=== PATIENT | male | born 1995 | race Caucasian/White ===

== ENCOUNTER 2020-01-19 07:20 | Emergency (ER) | payer OTHER, SELFPAY ==
--- NOTE | ~2020-01-19 | CT_ITS ---
EXAMINATION: CT wrist LT wo con DATE: 01/19/2020 08:09 INDICATION: Scaphoid fracture TECHNIQUE: High resolution computed tomography (CT) of the left wrist was performed without intraveno us contrast. Additional sagittal and coronal reconstructions were performed. Automated exposure contr ol and iterative reconstruction technique were employed. The dose-length product was 249.64 mGy-cm. COMPARISON: Left wrist radiographs dated 01/19/2020 FINDINGS: Nondisplaced fracture across the left scaphoid waist is confirmed. Alignment remains normal. No other fractures identified. Joint spaces are normal. Soft tissue swelling about the carpus with likely alvina ctive midcarpal joint effusion. Tendons appear unremarkable. IMPRESSION: 1. Nondisplaced scaphoid waist fracture which remains in anatomic alignment. Reviewed, dictated and finalized at location A.
--- NOTE | ~2020-01-19 | XR_ITS ---
EXAMINATION: XR wrist LT min 3V DATE: 01/19/2020 07:33 INDICATION: Left wrist pain post fall TECHNIQUE: Posteroanterior, ulnar deviation, oblique, and lateral views of the left wrist were obtain ed. COMPARISON: none FINDINGS: Subtle linear lucency likely representing a nondisplaced transverse fracture across the scaphoid wais t. Alignment remains normal. No other fractures identified. Joint spaces are normal. IMPRESSION: 1. Likely nondisplaced scaphoid waist fracture. Given that this is apparent on only one projection, c ould consider CT for more definitive determination. Reviewed, dictated and finalized at location A. IMPRESSION: 1. Likely nondisplaced scaphoid waist fracture. Given that this is apparent on only one projection, could consider CT for more definitive determination.
[2020-01-19 07:13] VITALS: BP 126/80; PULSE 83; RESP 18; TEMP 36.8; O2SAT 100
--- NOTE | 2020-01-19 07:25 | ED.UPPEXIN ---
HPI - Extremity Injury (Upper) General Chief Complaint: Extremity Injury, Upper Stated Complaint: Wrist injury History of Present Illness HPI narrative: Patient is a 24-year-old male who presents ER with left wrist pain. Patient was on a skateboard yesterday when he fell off and landed on his outstretched hand. He did strike his hand on the ground and is unsure if he lost consciousness. He does remember hitting the ground. No new numbness or tingling in the wrist. Pain is worse with any type of movement. No additional injury to the left arm. Related Data Allergies Allergy/AdvReac Type Severity Reaction Status Date / Time clavulanic acid Allergy Mild Anaphylaxis Verified 01/19/20 07:22 Penicillins Allergy Mild Anaphylaxis Verified 01/19/20 07:22 amoxicillin Allergy Unknown Hives / Verified 01/19/20 07:22 Red Face BETALACTAMASEIN Allergy Mild Unknown Uncoded 01/19/20 07:22 Review of Systems Constitutional: Constitutional: Denies chills, Denies fatigue and Denies fever(s) ENT: Denies nasal congestion and Denies sore throat Respiratory: Respiratory: Denies cough and Denies dyspnea Musculoskeletal: Musculoskeletal: Reports arthralgias and Denies muscle cramps Neurologic: Denies numbness and Denies weakness PMFSH Past Medical History Medical History (Updated 01/19/20 @ 08:52 by Jet Root MD) Anxiety Paranoid schizophrenia Surgical History Surgical History (Updated 01/19/20 @ 08:41 by Jet Root MD) History of ankle surgery Social History Social History (Updated 01/19/20 @ 09:25 by Jet Root MD) Tobacco type: e-cigarettes Exam Narrative: Exam Narrative: GENERAL: Well-appearing, well-nourished, and in no acute distress. HEAD: Normocephalic, atraumatic. EXTREMITIES: Focused exam of the right wrist reveals tenderness to entirety of the wrist with slight swelling. Decreased range of motion due to pain. Normal range of motion of the elbow and fingers. Sharp and soft touch intact. Normal pulses. SKIN: Warm, dry, no rash. NEURO: No focal deficits. Alert and oriented x3. PSYCH: Normal mood and affect. Course Vital Signs Vital signs: Vital Signs Temperature 98.2 F 01/19/20 07:13 Pulse Rate 83 01/19/20 07:13 Respiratory Rate 18 01/19/20 07:13 Blood Pressure 126/80 01/19/20 07:13 Pulse Oximetry 100 01/19/20 07:13 Temperature 98.2 F 01/19/20 07:13 Pulse Rate 83 01/19/20 07:13 Respiratory Rate 18 01/19/20 07:13 Blood Pressure 126/80 01/19/20 07:13 Pulse Oximetry 100 01/19/20 07:13 Procedures Orthopedic Splinting/Casting Injury #1: Splinting/Casting Date: 01/19/20 Splinting/Casting Time: 08:50 Side: left Upper Extremity Injury Location: wrist Upper Extremity Immobilizer: thumb spica Splint: customized in ED OCL: thumb spica Pre-Procedure Neuro Vascular Exam: normal Post-Procedure Neuro Vascular Exam: normal MDM - Extremity Injury (Upper) Imaging Data Radiologist's impression: ITS Impressions Wrist X-Ray 01/19/20 07:36 IMPRESSION: 1. Likely nondisplaced scaphoid waist fracture. Given that this is apparent on only one projection, could consider CT for more definitive determination. Wrist CT 01/19/20 08:39 IMPRESSION: 1. Nondisplaced scaphoid waist fracture which remains in anatomic alignment. Discharge Plan Discharge Clinical Impression: Scaphoid fracture of wrist Qualifiers: Encounter type: initial encounter Scaphoid bone location: unspecified portion of scaphoid Fracture type: closed Fracture alignment: nondisplaced Laterality: left Qualified Code(s): S62.002A - Unspecified fracture of navicular [scaphoid] bone of left wrist, initial encounter for closed fracture Patient Disposition: Home, Self-Care Condition: Stable Instructions: Scaphoid Fracture (ED) Additional Instructions: Return to the ER if you have new injury, you have chest serge
[2020-01-19 09:40] VITALS: BP 140/79; PULSE 72; RESP 16; O2SAT 99
== END 2020-01-19 09:42 | disposition home or self-care (01) ==
PROVIDERS: Emergency Provider Emergency Medicine
DX: S62.025A Nondisplaced fracture of middle third of navicular [scaphoid] bone of left wrist, initial encounter for closed fracture (principal); F17.290 Nicotine dependence, other tobacco product, uncomplicated; V00.131A Fall from skateboard, initial encounter; Y93.51 Activity, roller skating (inline) and skateboarding
CPT/HCPCS: 29125; 73110; 73200; 99284; A4565; A9270

== ENCOUNTER 2020-07-05 20:27 | Emergency (ER) | payer OTHER, SELFPAY ==
--- NOTE | 2020-07-05 20:29 | ECG_ITS ---
Measurements Intervals [place] Rate: 75 P: 51 [place]: 158 QRS: 63 QRSD: 84 T: 58 QT: 397 QTc: 444 Interpretive Statements SINUS RHYTHM ANTEROSEPTAL INFARCT, AGE INDETERMINATE BORDERLINE T WAVE ABNORMALITY- ANTERIOR LEADS ABNORMAL ECG Electronically Signed On 07-06-2020 7:39:21 CDT by Mani Muniz D.O.
[2020-07-05 20:31] VITALS: BP 127/80; PULSE 113; RESP 20; TEMP 37.2; O2SAT 100
--- NOTE | 2020-07-05 20:43 | ED.AMS ---
HPI - Altered Mental Status General Chief Complaint: Nausea/Vomiting/Diarrhea Stated Complaint: N/V History of Present Illness HPI narrative: History limited by the fact that he is an extremely poor historian. Brought in by EMS after being found on the street yelling. He reportedly told them that he smoked 6 grams of marijuana. He was actively vomiting on arrival. When asked what brought him in he mumbled mostly incoherently about doing some very bad things and just trying to survive the night. Related Data Allergies Allergy/AdvReac Type Severity Reaction Status Date / Time clavulanic acid Allergy Mild Anaphylaxis Verified 01/19/20 07:22 Penicillins Allergy Mild Anaphylaxis Verified 01/19/20 07:22 amoxicillin Allergy Unknown Hives / Verified 01/19/20 07:22 Red Face BETALACTAMASEIN Allergy Mild Unknown Uncoded 01/19/20 07:22 Review of Systems Review of Systems: ROS unobtainable: Yes other (intoxication) [facility] Past Medical History Medical History Anxiety Paranoid schizophrenia Surgical History Surgical History History of ankle surgery Social History Social History Tobacco type: e-cigarettes/vaping Exam Const: General: alert and confusion Other: Oriented to self and location HENMT: Head: normal to inspection Eyes: Pupils: Equal, round and reactive pupils present Resp: Effort & Inspection: normal respiratory effort Auscultation: clear to auscultation bilaterally Cardio: Rate: tachycardic Rhythm: regular rhythm GI: GI Palp: Yes Soft to palpation and No Tenderness to palpation present (GI) Skin: General skin exam: normal color Other: diaphoretic Extrem: General: normal to inspection Psych: Appearance: disheveled Course Vital Signs Vital signs: Vital Signs Temperature 37.2 C 07/05/20 20:31 Pulse Rate 113 H 07/05/20 20:31 Respiratory Rate 20 07/05/20 20:31 Blood Pressure 127/80 07/05/20 20:31 Pulse Oximetry 100 07/05/20 20:31 Temperature 37.2 C 07/05/20 20:31 Pulse Rate 77 07/06/20 02:53 Respiratory Rate 16 07/06/20 02:53 Blood Pressure 117/68 07/06/20 02:53 Pulse Oximetry 99 07/06/20 02:53 MDM - Altered Mental Status MDM Narrative Medical decision making narrative: After several hours of observation he has regained normal status and is ready for discharge Medical Records Attestation: I reviewed the patient's medical records. Lab Data Attestation: I reviewed the patient's lab results. Result diagrams: 07/05/20 21:02 07/05/20 21:02 Labs: Lab Results 07/05/20 07/05/20 07/05/20 Range/Units 21:02 21:02 21:02 WBC 12.5 H (4.5-10.0) K/mm3 RBC 4.57 L (4.6-6.20) M/mm3 Hgb 14.9 (14.0-18.0) g/dL Hct 42.6 (42.0-52.0) % MCV 93.2 (80-100) fl MCH 32.6 (26-34) pg MCHC 35.0 (32-36) g/dl RDW 13.1 (11.5-14.5) % Plt Count 257 (150-375) k/mm3 MPV 9.9 (7.4-10.4) fl Immature Gran % (Auto) 0.3 (0-0.5) % Neut % (Auto) 38.4 L (45.5-73.1) % Lymph % (Auto) 51.6 H (18.3-44.2) % Armstrong % (Auto) 8.4 (2.6-8.5) % Eos % (Auto) 0.9 (0-4.4) % Baso % (Auto) 0.4 (0.2-1.2) % Lymph # (Auto) 6.43 H (0.9-3.2) K/mm3 Armstrong # (Auto) 1.1 H (0.1-0.6) K/mm3 Eos # (Auto) 0.1 (0-0.3) K/mm3 Baso # (Auto) 0.1 (0.0-0.1) K/mm3 Abs Immat Gran (auto) 0.04 H (0.00-0.031) K/mm3 Absolute Neuts (auto) 4.8 (1.3-6.7) K/mm3 Absolute Nucleated RBC 0.0 (0.0-0.012) K/mm3 Nucleated RBC % 0.0 (0.0-0.2) % Atypical Lymphocytes Present Platelet Estimate Adequate (Adequate) Sodium 140 (137-145) mmol/L Potassium 3.7 (3.4-5.0) mmol/L Chloride 103 (98-107) mmol/L Carbon Dioxide 26 (22-30) mmol/L Anion Gap 11 (8-16) mmol/L BUN 13 (9-20) mg/dL Creatinine 0.7
[2020-07-05] MEDS: SODIUM CHLORIDE 0.9% IV 1,000 ML 999 ML IV CONT (21:01)
[2020-07-05] MEDS: HALOPERIDOL LACTATE 5 MG/ML VIAL IM (21:02)
[2020-07-05 21:07] LABS: Basophils Absolute Auto 0.1 K/mm3 (0.0-0.1); Basophils Percent Auto 0.4 % (0.2-1.2); Eosinophils Absolute Auto 0.1 K/mm3 (0-0.3); Eosinophils Percent Auto 0.9 % (0-4.4); Hematocrit 42.6 % (42.0-52.0); Hemoglobin 14.9 g/dL (14.0-18.0); Immature Granulocyte Absolute 0.04 K/mm3 (0.00-0.031); Immature Granulocyte Percent A 0.3 % (0-0.5); Lymphocytes Absolute Auto 6.43 K/mm3 (0.9-3.2); Lymphocytes Percent Auto 51.6 % (18.3-44.2); Mean Corpuscular Hemoglobin 32.6 pg (26-34); Mean Corpuscular Volume 93.2 fl (80-100); Mean Platelet Volume 9.9 fl (7.4-10.4); Monocytes Absolute Auto 1.1 K/mm3 (0.1-0.6); Monocytes Percent Auto 8.4 % (2.6-8.5); Neutrophils Absolute Auto 4.8 K/mm3 (1.3-6.7); Neutrophils Percent Auto 38.4 % (45.5-73.1); Platelet Count Result 257 k/mm3 (150-375); Red Blood Count 4.57 M/mm3 (4.6-6.20); Red Cell Distribution Width 13.1 % (11.5-14.5); White Blood Count 12.5 K/mm3 (4.5-10.0)
[2020-07-05 21:18] LABS: Acetaminophen < 10 ug/mL (10-30); Ethanol < 10 mg/dL (<10); Salicylate < 1.0 mg/dL (2-20)
[2020-07-05 21:19] LABS: Alanine Aminotransferase 22 U/L (4-50); Albumin Level 4.8 g/dL (3.5-5.1); Alkaline Phosphatase 84 U/L (38-126); Anion Gap 11 mmol/L (8-16); Aspartate Amino Transferase 23 U/L (17-59); Bilirubin,Total 0.2 mg/dL (0.2-1.3); Blood Urea Nitrogen 13 mg/dL (9-20); Calcium 9.4 mg/dL (8.4-10.2); Carbon Dioxide 26 mmol/L (22-30); Chloride 103 mmol/L (98-107); Estimated CRCL calculation 149 ml/min; Estimated Glomerular Filt Rate > 60; Glucose 125 mg/dL (75-110); Potassium 3.7 mmol/L (3.4-5.0); Sodium 140 mmol/L (137-145)
[2020-07-05 21:27] LABS: Atypical Lymphocytes Present; Platelet Estimate Adequate (Adequate)
[2020-07-05 21:49] LABS: Thyroid Stimulating Hormone 0.938 uIU/mL (0.465-4.680)
[2020-07-05] MEDS: ONDANSETRON INJ 4 MG/2 ML VIAL (21:57)
[2020-07-05 22:56] VITALS: BP 113/73; PULSE 81; RESP 20; O2SAT 99
[2020-07-06 00:42] VITALS: BP 100/58; PULSE 69; RESP 18; O2SAT 95
[2020-07-06 02:53] VITALS: BP 117/68; PULSE 77; RESP 16; O2SAT 99
== END 2020-07-06 03:20 | disposition home or self-care (01) ==
PROVIDERS: Emergency Provider Emergency Medicine
DX: R11.10 Vomiting, unspecified (principal); F12.10 Cannabis abuse, uncomplicated; R94.31 Abnormal electrocardiogram [ECG] [EKG]
CPT/HCPCS: 36415; 80053; 80307; 84443; 85025; 93005; 96361; 96372; 96374; 99284; J1630; J2405; J7030

== ENCOUNTER 2020-08-12 20:59 | Emergency (ER) | payer OTHER, SELFPAY ==
[2020-08-12 21:06] VITALS: BP 114/64; PULSE 121; TEMP 37; O2SAT 100
--- NOTE | 2020-08-12 21:27 | ED.GENADULT ---
HPI - General Adult General Chief complaint: Anxiety Stated complaint: freaking out, smoked too much weed Source: patient Mode of arrival: ambulatory Limitations: no limitations History of Present Illness HPI narrative: Patient is a 25-year-old male who presents complaining of anxiety. Patient reports smoking marijuana and becoming very anxious. He states I am freaking out about life . He denies use of other illicit substances. He reports a history of schizophrenia and anxiety. He denies auditory or visual hallucinations. He denies all other complaints. MD complaint: anxiety Related Data Allergies Allergy/AdvReac Type Severity Reaction Status Date / Time clavulanic acid Allergy Mild Anaphylaxis Verified 01/19/20 07:22 Penicillins Allergy Mild Anaphylaxis Verified 01/19/20 07:22 amoxicillin Allergy Unknown Hives / Verified 01/19/20 07:22 Red Face BETALACTAMASEIN Allergy Mild Unknown Uncoded 01/19/20 07:22 Review of Systems Review of Systems: Narrative: CONSTITUTIONAL: Denies fever, chills, or sweats. EYES: Denies visual changes, redness, or discharge. ENT: Denies rhinorrhea, congestion, sore throat, or otalgia. CARDIOVASCULAR: Denies chest pain, palpitations, or edema. RESPIRATORY: Denies cough or dyspnea. GASTROINTESTINAL: Denies abdominal pain, nausea, vomiting, or diarrhea. GENITOURINARY: Denies dysuria or hematuria. SKIN: Denies rash or itching. MUSCULOSKELETAL: Denies back pain, joint pain, or myalgia. NEUROLOGIC: Denies headache, numbness, dizziness, or weakness. PSYCHIATRIC: Reports anxiety, denies depression. PMFSH Past Medical History Medical History (Updated 08/12/20 @ 22:31 by NIXON Mcduffie) Anxiety Paranoid schizophrenia Surgical History Surgical History History of ankle surgery Social History Social History (Updated 08/12/20 @ 21:29 by NIXON Mcduffie) Tobacco type: e-cigarettes/vaping Substance use: current Substance use type: marijuana Exam Narrative: Exam Narrative: GENERAL: Well-appearing, well-nourished, and in no acute distress. HEAD: Normocephalic, atraumatic. EYES: No redness or drainage. ENT: Mucous membranes pink and moist. CHEST: No respiratory distress. Clear to auscultation. HEART: Regular rate and rhythm. No murmur appreciated. Normal peripheral pulses. GI: Soft, nontender without rebound, or guarding. No distention. Bowel sounds normal in all quadrants. MUSCULOSKELETAL: No bony tenderness. EXTREMITIES: Normal range of motion. No edema. SKIN: Warm, dry, no rash. NEURO: No focal deficits. Alert and oriented x3. Gait steady. PSYCH: Fidgeting and anxious. Course Reevaluation(s) Reevaluation #1: Patient reports he is feeling much better at this time. He states he is ready for discharge. Vital Signs Vital signs: Vital Signs Temperature 37.0 C 08/12/20 21:06 Pulse Rate 121 H 08/12/20 21:06 Blood Pressure 114/64 08/12/20 21:06 Pulse Oximetry 100 08/12/20 21:06 Temperature 37.0 C 08/12/20 21:06 Pulse Rate 121 H 08/12/20 21:06 Blood Pressure 114/64 08/12/20 21:06 Pulse Oximetry 100 08/12/20 21:06 Medical Decision Making Differential Diagnosis Differential Diagnosis: Graeme is A and O x 4, reports use of marijuana that increased anxiety. Patient has a history of marijuana use. Patient hydrated, zofran given. Patient able to tolerate PO at this time. Cautioned patient about use illicit substances. Patient is stable for discharge to home with out patient follow up. Vital Signs Vital Signs: Vital Signs Temperature 37.0 C 08/12/20 21:06 Pulse Rate 121 H 08/12/20 21:06 Blood Pressure 114/64 08/12/20 21:06 Pulse Oximetry 100 08/12/20 21:06 Temperature 37.0 C 08/12/20 21:06 Pulse Rate 121 H 08/12/20 21:06 Blood Pressure 114/64 08/12/20 21:06 Pulse Oximetry 100 08/12/20 21:06 Critical Care Time Critical Care Time Critical
[2020-08-12] MEDS: SODIUM CHLORIDE 0.9% IV 1,000 ML 999 ML IV CONT (21:36)
[2020-08-12] MEDS: ONDANSETRON INJ 4 MG/2 ML VIAL IV PUSH (21:37)
[2020-08-12 22:46] VITALS: BP 120/58; PULSE 106; RESP 17; TEMP 37; O2SAT 99
== END 2020-08-12 22:51 | disposition home or self-care (01) ==
PROVIDERS: Emergency Provider Nurse Practitioner
DX: F41.9 Anxiety disorder, unspecified (principal); F12.90 Cannabis use, unspecified, uncomplicated; F17.290 Nicotine dependence, other tobacco product, uncomplicated
CPT/HCPCS: 96361; 96374; 99284; J2405; J7030

== ENCOUNTER 2021-03-08 16:58 | Emergency (ER) | payer OTHER, SELFPAY ==
--- NOTE | ~2021-03-08 | XR_ITS ---
EXAMINATION: XR shoulder RT min 2V, XR clavicle RT EXAM DATE: 03/08/2021 17:57 (accession [id number]), 03/08/2021 17:56 (accession [id number]) INDICATION: Initial encounter following injury, with pain of the right shoulder, clavicle. Skateboard ing accident. TECHNIQUE: The following right shoulder projections obtained: frontal projection with internal rotati on, frontal projection with external rotation, Grashey, and scapular Y view (4+ views). 2 frontal pro jections right clavicle with different degrees of angulation. There are no prior studies for comparis on. FINDINGS: Several small bone islands in the right humeral head. Unremarkable glenohumeral and acromio clavicular joints. There are no acute fractures or dislocations identified. There is no subcutaneous gas. The soft tissue is unremarkable. There are no radiopaque foreign bodies. IMPRESSION: 1. Right shoulder, clavicle exam without acute osseous findings. Reviewed, dictated and finalized at location A. IMPRESSION: 1. Right shoulder, clavicle exam without acute osseous findings.
--- NOTE | ~2021-03-08 | XR_ITS ---
EXAMINATION: XR elbow RT 2V EXAM DATE: 03/08/2021 17:56 INDICATION: Skateboarding injury, initial encounter. Right elbow pain. TECHNIQUE: Right elbow frontal, lateral projections obtained and reviewed. There is no prior study f or comparison. FINDINGS: Right elbow anterior humeral line intact. There are no acute fractures or dislocations too ntified. There is no subcutaneous gas. There is soft tissue swelling over the olecranon. There are no radiopaque foreign bodies. No joint effusion. IMPRESSION: No acute osseous findings. Reviewed, dictated and finalized at location A. IMPRESSION: No acute osseous findings.
[2021-03-08 17:30] VITALS: BP 111/72; PULSE 103; RESP 20; TEMP 36.6; O2SAT 100
--- NOTE | 2021-03-08 18:12 | ED.UPPEXIN ---
HPI - Extremity Injury (Upper) General Chief Complaint: Extremity Injury, Lower Stated Complaint: elbow pain Source: patient Mode of arrival: ambulatory History of Present Illness HPI narrative: this is a 25-year-old male that presents after he fell off his skateboard he had a fall yesterday injuring his his right elbow and having a fall today of his skateboard injuring his right elbow and clavicle, has good range of motion in his right shoulder although it is tender and painful with movement and palpation with some good range of motion in his elbow with good flexion and extension. There is minimal swelling there is some point tenderness in mid clavicle area and right shoulder and elbow with some inflammation. complaint: injury to: right, shoulder and elbow Onset (ago): day(s) Handedness: right Place: outdoors Severity: moderate Related Data Home Medications Medication Instructions Recorded Confirmed citalopram 40 mg PO DAILY 03/08/21 03/08/21 clonidine HCl 0.2 mg PO TID 03/08/21 03/08/21 dextroamphetamine-amphetamine 20 mg PO DAILY 03/08/21 03/08/21 [Adderall XR] Allergies Allergy/AdvReac Type Severity Reaction Status Date / Time clavulanic acid Allergy Mild Anaphylaxis Verified 03/08/21 17:51 Penicillins Allergy Mild Anaphylaxis Verified 03/08/21 17:51 amoxicillin Allergy Unknown Hives / Verified 03/08/21 17:51 Red Face BETALACTAMASEIN Allergy Mild Unknown Uncoded 03/08/21 17:51 Review of Systems Review of Systems: All systems reviewed & are unremarkable except as noted in HPI and below PMFSH Past Medical History Medical History (Updated 03/08/21 @ 18:16 by Travis Dotson MD) Anxiety Paranoid schizophrenia Surgical History Surgical History History of ankle surgery Social History Social History Tobacco type: e-cigarettes/vaping Substance use: current Substance use type: marijuana Gender identity (if verbalized by the patient): Male Exam Const: General: no acute distress and alert Orientation/consciousness: patient oriented x3 HENMT: Head: normal to inspection Eyes: Conjunctivae: conjunctivae normal Pupils: Equal, round and reactive pupils present Neck: Neck: normal visual inspection, no lymphadenopathy and no meningeal signs Chest: Chest palpation & inspection: normal inspection of the chest Resp: Effort & Inspection: normal respiratory effort Auscultation: clear to auscultation bilaterally Cardio: Rate: regular rate Rhythm: regular rhythm GI: GI Palp: Yes Soft to palpation Percussion: Yes normal to percussion Back/Spine/Pelvis: Back: no CVA tenderness Skin: General skin exam: normal color Rashes: no rashes Neuro: General: patient oriented x3, moves all extremities, no meningeal signs and no focal motor deficits Extrem: Other: Tender clavicle on the right along with tender shoulder and right elbow with good range of motion with minimal swelling the shoulder but has some swelling and his elbow. Psych: Appearance: grossly normal Mental Status: mental status grossly normal Affect: normal affect Course Course Emergency Course: Patient declined any pain medication reviewed x-rays with patient and advised Tylenol or Motrin for pain and to refrain from skateboarding for about a week Vital Signs Vital signs: Vital Signs Temperature 36.6 C 03/08/21 17:30 Pulse Rate 103 H 03/08/21 17:30 Respiratory Rate 03/08/21 17:30 Blood Pressure 111/72 03/08/21 17:30 Pulse Oximetry 100 03/08/21 17:30 Temperature 36.6 C 03/08/21 17:30 Pulse Rate 103 H 03/08/21 17:30 Respiratory Rate 03/08/21 17:30 Blood Pressure 111/72 03/08/21 17:30 Pulse Oximetry 100 03/08/21 17:30 Critical Care Time Critical Care Time Critical Care Time: No Discharge Plan Discharge Clinical Impression: Right shoulder strain Qualifiers: En
[2021-03-08 18:36] VITALS: BP 102/71; PULSE 90; RESP 20; TEMP 36.6; O2SAT 100
== END 2021-03-08 18:41 | disposition home or self-care (01) ==
PROVIDERS: Emergency Provider Emergency Medicine; PCP Internal Medicine
DX: S46.911A Strain of unspecified muscle, fascia and tendon at shoulder and upper arm level, right arm, initial encounter (principal); S53.401A Unspecified sprain of right elbow, initial encounter; V00.131A Fall from skateboard, initial encounter
CPT/HCPCS: 73000; 73030; 73070; 99282; 99284

== ENCOUNTER 2021-03-13 04:51 | Emergency (ER) | payer OTHER, SELFPAY ==
[2021-03-13 04:51] VITALS: BP 124/91; PULSE 105; RESP 20; TEMP 36.6; O2SAT 98
--- NOTE | 2021-03-13 05:29 | ED.GENADULT ---
HPI - General Adult General Chief complaint: Psychiatric Symptoms Stated complaint: Mental Eval. 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 He reports that he has had a rough go of it. He has had a hard relationship with his dad and his dads girlfriend lately and it made him upset. He reports that when he is upset his third personality comes out. It was this third personality that comes out and texted his friend with suicidal comments who called it in and led him to be taken to the ER. Currently he denies being suicidal and he denies having a plan. Related Data Home Medications Medication Instructions Recorded Confirmed citalopram 40 mg PO DAILY 03/08/21 03/13/21 clonidine HCl 0.2 mg PO TID 03/08/21 03/13/21 dextroamphetamine-amphetamine 20 mg PO DAILY 03/08/21 03/13/21 [Adderall XR] Allergies Allergy/AdvReac Type Severity Reaction Status Date / Time clavulanic acid Allergy Mild Anaphylaxis Verified 03/08/21 17:51 Penicillins Allergy Mild Anaphylaxis Verified 03/08/21 17:51 amoxicillin Allergy Unknown Hives / Verified 03/08/21 17:51 Red Face BETA-LACTAMASE Allergy Unknown Hives Uncoded 03/13/21 07:37 Review of Systems Constitutional: Constitutional: Reports no additional constitutional complaints Eyes: Eyes: Reports no additional eye complaints ENT: Reports system reviewed and no additional complaints, except as documented Cardiovascular: Cardiovascular: Reports no additional cardiovascular complaints Respiratory: Respiratory: Reports no additional respiratory complaints Gastrointestinal: Gastrointestinal: Reports no additional gastrointestinal complaints Genitourinary: Genitourinary: Reports no additional male genitourinary complaints Musculoskeletal: Musculoskeletal: Reports no additional musculoskeletal complaints Integumentary/Breasts: Skin/Breast: Reports system reviewed and no additional complaints, except as docu Neurologic: Reports system reviewed and no additional complaints, except as documented Psychiatric: Psychiatric: Reports as per HPI Endocrine: Endocrine: Reports no additional endocrine complaints Hematologic/Lymphatic: Hematologic/Lymphatic: Reports no additional hematologic/lymphatic complaints Allergic/Immunologic: Allergic/Immunologic: Reports no additional allergic/immunologic complaints [facility] Past Medical History Medical History (Updated 03/14/21 @ 00:01 by Harinder Call) Anxiety Paranoid schizophrenia Surgical History Surgical History History of ankle surgery Social History Social History Tobacco type: e-cigarettes/vaping Substance use: current Substance use type: marijuana Gender identity (if verbalized by the patient): Male Exam Const: General: no acute distress and alert Orientation/consciousness: patient oriented x3 Limitations: No altered mental status HENMT: Head: normal to inspection Other: atraumatic Eyes: Conjunctivae: conjunctivae normal Pupils: Equal, round and reactive pupils present EOM: EOMs intact bilaterally Neck: Neck: normal visual inspection Chest: Chest palpation & inspection: normal inspection of the chest Resp: Effort & Inspection: normal respiratory effort Auscultation: clear to auscultation bilaterally Cardio: Rate: regular rate Rhythm: regular rhythm GI: Inspection: non-distended GI Palp: Yes Soft to palpation, No Tenderness to palpation present (GI), No Guarding due to palpation present (GI) and No Rigid due to palpation Skin: General skin exam: normal color Rashes: no rashes Neuro: General: patient oriented x3 and m
[2021-03-13 05:49] LABS: Add Urine Microscopic? NO; Appearance Urine Clear (Clear); Bilirubin Urine Negative (Negative); Blood Urine Negative (Negative); Color Urine Yellow (Yellow); Glucose Urine UA Negative (Negative); Ketones Urine Negative (Negative); Leukocyte Esterase Ur Negative LEU/UL (Negative); Nitrate Urine Negative (Negative); Protein Urine Negative (Negative); Specific Grav Ur >= 1.030 (1.010-1.020); Urobilinogen Urine 0.2 mg/dL (0.2-1.0)
[2021-03-13 06:08] LABS: Basophils Absolute Auto 0.07 K/mm3 (0.00-0.10); Basophils Percent Auto 0.8 % (0.0-1.0); Eosinophils Absolute Auto 0.22 K/mm3 (0.02-0.50); Eosinophils Percent Auto 2.5 % (1.0-6.0); Hematocrit 40.6 % (40.0-54.0); Hemoglobin 14.3 g/dL (14.0-18.0); Immature Granulocyte Absolute 0.02 K/mm3 (0.00-0.00); Immature Granulocyte Percent A 0.2 % (0.0-0.0); Lymphocytes Absolute Auto 3.38 K/mm3 (1.10-4.50); Lymphocytes Percent Auto 38.7 % (18.0-42.0); Mean Corpuscular HGB Conc 35.2 g/dL (32.0-36.0); Mean Corpuscular Hemoglobin 31.4 pg (27.0-31.0); Mean Platelet Volume 9.6 fl (8.7-11.0); Monocytes Absolute Auto 0.79 K/mm3 (0.10-0.90); Neutrophils Absolute Auto 4.3 K/mm3 (1.7-7.2); Neutrophils Percent Auto 48.8 % (50.0-70.0); Platelet Count Result 274 K/mm3 (150-420); Red Blood Count 4.56 M/mm3 (4.70-6.10); Red Cell Distribution Width 12.5 % (11.6-14.4); White Blood Count 8.7 K/mm3 (4.8-10.8)
[2021-03-13 06:13] LABS: Amphetamine Screen Urine Positive (Negative); Barbiturate Screen Urine Negative (Negative); Benzodiazepines Screen Urine Negative (Negative); Cannabinoid Screen Urine Negative (Negative); Cocaine Screen Urine Negative (Negative); Methadone Screen Urine Negative (Negative); Opiate Screen Urine Negative (Negative); Phencyclidine Screen Urine Negative (Negative)
[2021-03-13 06:29] LABS: Alanine Aminotransferase 23 U/L (16-63); Albumin Level 3.9 g/dL (3.4-5.0); Alkaline Phosphatase 97 U/L (46-116); Anion Gap 9 mmol/L (8-16); Aspartate Amino Transferase 14 U/L (15-37); Bilirubin,Total 0.3 mg/dL (0.00-1.00); Blood Urea Nitrogen 12 mg/dL (7-18); Calcium 9.2 mg/dL (8.5-10.1); Carbon Dioxide 27 mmol/L (21-32); Chloride 103 mmol/L (98-108); Estimated CRCL calculation 115 ml/min; Estimated Glomerular Filt Rate > 60; Glucose 94 mg/dL (70-99); Osmolality Calculated 287 mOsm/kg (285-295); Potassium 3.6 mmol/L (3.5-5.1); Sodium 139 mmol/L (136-145); Thyroid Stimulating Hormone 1.03 uIU/mL (0.36-3.74); Total Protein 7.9 g/dL (6.4-8.2)
[2021-03-13 06:31] LABS: Acetaminophen < 2 ug/mL (10-30); Ethanol < 3 mg/dL (0-6)
[2021-03-13 06:31] LABS: Salicylate 1.9 mg/dL (2.8-20.0)
--- NOTE | 2021-03-13 06:33 | PC.NURSE ---
pt sleeping. left undisturbed. remains on direct vision security camera. grandmother called to see about discharge. explained psych assessment process. will call after crisis counselor has been called.
--- NOTE | 2021-03-13 07:02 | PC.NURSE ---
report to venus fajardo. pt sleeping. remains in direct vision of nurse per information security systems instructor.
[2021-03-13 10:34] VITALS: BP 117/67; PULSE 68; O2SAT 99
== END 2021-03-13 10:30 | disposition home or self-care (01) ==
PROVIDERS: Emergency Provider Family Medicine
DX: R45.851 Suicidal ideations (principal); J45.909 Unspecified asthma, uncomplicated; F41.9 Anxiety disorder, unspecified; F31.9 Bipolar disorder, unspecified; F20.9 Schizophrenia, unspecified; F17.293 Nicotine dependence, other tobacco product, with withdrawal
CPT/HCPCS: 36415; 80053; 80307; 81003; 84443; 85025; 99283; 99284

== ENCOUNTER 2021-05-30 13:28 | Emergency (ER) | payer OTHER, SELFPAY ==
--- NOTE | ~2021-05-30 | CT_ITS ---
EXAMINATION: CT facial bones w con DATE: 05/30/2021 16:42 INDICATION: Left facial pain and edema. TECHNIQUE: Computed tomography (CT) of the facial bones and maxillofacial region was performed with 7 5 mL Omnipaque 350 intravenous contrast. Automated exposure control and iterative reconstruction tech [employer] were employed. The dose-length product was 279.37 mGy-cm. COMPARISON: None. FINDINGS: There is left cheek soft tissue swelling. There is mild mucosal thickening in the maxillary sinuses. There are carious lesions of most of the teeth. There are periapical lucencies of tooth 20 with continuity with the mental foramen. There are periapical lucencies of 2 maxillary molars. IMPRESSION: 1. Carious lesion and periapical lucencies involving tooth 20 with continuity with the mental foramen and left cheek soft tissue swelling. No drainable soft tissue abscess. 2. Extensive dental disease. Reviewed, dictated and finalized at location A. IMPRESSION: 1. Carious lesion and periapical lucencies involving tooth 20 with continuity w ith the mental foramen and left cheek soft tissue swelling. No drainable soft t issue abscess. 2. Extensive dental disease.
[2021-05-30 13:30] VITALS: BP 122/80; PULSE 85; RESP 18; TEMP 36.6; O2SAT 100
--- NOTE | 2021-05-30 15:19 | ED.DENTAL ---
HPI - Dental/Oral General Chief complaint: Dental/Oral Stated complaint: tooth pain, abscess Time Seen by Provider: 05/30/21 13:50 Source: patient Mode of arrival: ambulatory Limitations: no limitations History of Present Illness HPI Narrative: This is a 25-year-old male that presents to the emergency department for toothache noted since yesterday. Reports this morning he woke up with left-sided facial swelling in the area. Denies fever, dysphagia, or dyspnea. MD Complaint: tooth pain Location: Tooth # (20) Related Data Home Medications Medication Instructions Recorded Confirmed citalopram 40 mg PO DAILY 03/08/21 03/13/21 clonidine HCl 0.2 mg PO TID 03/08/21 03/13/21 dextroamphetamine-amphetamine 20 mg PO DAILY 03/08/21 03/13/21 [Adderall XR] Allergies Allergy/AdvReac Type Severity Reaction Status Date / Time clavulanic acid Allergy Mild Anaphylaxis Verified 05/30/21 13:47 Penicillins Allergy Mild Anaphylaxis Verified 05/30/21 13:47 amoxicillin Allergy Unknown Hives / Verified 05/30/21 13:47 Red Face BETA-LACTAMASE Allergy Unknown Hives Uncoded 05/30/21 13:47 Review of Systems Review of Systems: CONSTITUTIONAL: Denies fever ENT: Reports dentalgia All systems reviewed & are unremarkable except as noted in HPI and below PMFSH Past Medical History Medical History (Updated 05/30/21 @ 17:03 by Nereida Nava PA-C) Anxiety Paranoid schizophrenia Surgical History Surgical History History of ankle surgery Social History Social History Tobacco type: e-cigarettes/vaping Substance use: current Substance use type: marijuana Gender identity (if verbalized by the patient): Male Exam Narrative: GENERAL: Well-appearing, well-nourished, and in no acute distress. HEAD: Normocephalic, atraumatic. EYES: EOMI. ENT: Mucous membranes moist. Oropharynx without tonsillar hypertrophy exudate or other lesions. Poor dentition. Tooth #20 with moderate surrounding edema and erythema. No trismus. Floor mouth is soft NECK: Supple. No adenopathy or masses. CHEST: Airway patent HEART: Regular rate EXTREMITIES: Normal range of motion. No edema. SKIN: Warm, dry, no rash. NEURO: No focal deficits. Alert and oriented x3. PSYCH: Normal mood and affect Course Vital Signs Vital signs: Vital Signs Temperature 97.9 F 05/30/21 13:30 Pulse Rate 85 05/30/21 13:30 Respiratory Rate 18 05/30/21 13:30 Blood Pressure 122/80 05/30/21 13:30 Pulse Oximetry 100 05/30/21 13:30 Temperature 97.9 F 05/30/21 13:30 Pulse Rate 85 05/30/21 13:30 Respiratory Rate 18 05/30/21 13:30 Blood Pressure 122/80 05/30/21 13:30 Pulse Oximetry 100 05/30/21 13:30 MDM - Dental/Oral MDM Narrative Medical decision making narrative: Patient presents to the emergency department for toothache noted since yesterday. He is afebrile and nontoxic-appearing. The floor of mouth is soft. No trismus. There is moderate edema and erythema surrounding the tooth. No obvious fluctuance to suggest abscess. CBC with mild leukocytosis to 11.8. Inflammatory markers are not elevated. CT scan of the facial bones shows carious lesion and periapical lucencies involving tooth 20 with soft tissue swelling. No drainable soft tissue abscess. Shows extensive dental disease. Patient was updated on case findings. Will be given first dose of antibiotics IV in the ED and started on oral antibiotics. He was instructed to follow-up with a dentist. He was given warnings to return to the ER Lab Data Attestation: I reviewed the patient's lab results. Result diagrams: 05/30/21 15:39 05/30/21 15:39 Labs: Lab Results 05/30/21 05/30/21 Range/Units 15:39 15:39 WBC 11.8 H (4.5-10.0) K/mm3 RBC 5.07 (4.6-6.20) M/mm3 Hgb 16.1 (14.0-18.0) g/dL Hct 47.4 (42.0-52.0) % MCV 93.5
[2021-05-30 15:48] LABS: Basophils Absolute Auto 0.1 K/mm3 (0.0-0.1); Basophils Percent Auto 0.4 % (0.2-1.2); Eosinophils Absolute Auto 0.2 K/mm3 (0-0.3); Eosinophils Percent Auto 1.6 % (0-4.4); Hematocrit 47.4 % (42.0-52.0); Hemoglobin 16.1 g/dL (14.0-18.0); Immature Granulocyte Absolute 0.05 K/mm3 (0.00-0.031); Immature Granulocyte Percent A 0.4 % (0-0.5); Lymphocytes Absolute Auto 2.51 K/mm3 (0.9-3.2); Lymphocytes Percent Auto 21.3 % (18.3-44.2); Mean Corpuscular Hemoglobin 31.8 pg (26-34); Mean Corpuscular Volume 93.5 fl (80-100); Mean Platelet Volume 9.2 fl (7.4-10.4); Monocytes Absolute Auto 1.2 K/mm3 (0.1-0.6); Neutrophils Absolute Auto 7.8 K/mm3 (1.3-6.7); Neutrophils Percent Auto 66.3 % (45.5-73.1); Platelet Count Result 242 k/mm3 (150-375); Red Blood Count 5.07 M/mm3 (4.6-6.20); Red Cell Distribution Width 13.4 % (11.5-14.5); White Blood Count 11.8 K/mm3 (4.5-10.0)
[2021-05-30 16:07] LABS: Anion Gap 10 mmol/L (8-16); Blood Urea Nitrogen 20 mg/dL (9-20); Calcium 9.6 mg/dL (8.4-10.2); Carbon Dioxide 26 mmol/L (22-30); Chloride 99 mmol/L (98-107); Estimated CRCL calculation 151 ml/min; Estimated Glomerular Filt Rate > 60; Glucose 90 mg/dL (65-110); Potassium 4.1 mmol/L (3.4-5.0); Sodium 135 mmol/L (137-145)
[2021-05-30 16:31] LABS: CRP < 0.5 mg/dL (<1.0)
[2021-05-30 16:34] LABS: Erythrocyte Sedimentation Rate 9 mm/hr (0-20)
[2021-05-30] MEDS: CLINDAMYCIN 600 MG/D5W 50 ML 600 MG/50 ML PIGGYBACK 100 MG IVPB (17:05)
[2021-05-30 17:56] VITALS: BP 132/78; PULSE 78; RESP 18; O2SAT 99
== END 2021-05-30 17:58 | disposition home or self-care (01) ==
PROVIDERS: Physician Assistant; Emergency Provider Emergency Medicine
DX: K08.89 Other specified disorders of teeth and supporting structures (principal); F41.9 Anxiety disorder, unspecified; F20.0 Paranoid schizophrenia; F17.290 Nicotine dependence, other tobacco product, uncomplicated; K02.9 Dental caries, unspecified
CPT/HCPCS: 36415; 70487; 80048; 85025; 85652; 86140; 96365; 99284; Q9967

== ENCOUNTER 2021-10-09 16:38 | Emergency (ER) | payer OTHER, SELFPAY ==
--- NOTE | 2021-10-09 16:42 | ED.DENTAL ---
HPI - Dental/Oral General Chief complaint: Dental/Oral Stated complaint: toothache Time Seen by Provider: 10/09/21 16:47 Source: patient and RN notes reviewed Mode of arrival: ambulatory Limitations: no limitations History of Present Illness HPI Narrative: 26-year-old male presents with concern for dental infection. He reports left upper dental pain and swelling. Reports symptoms started this morning. Reports a history of dental infection in other areas. He denies difficulty swallowing, fever, body aches. MD Complaint: tooth pain Related Data Home Medications Medication Instructions Recorded Confirmed citalopram 40 mg PO DAILY 03/08/21 03/13/21 clonidine HCl 0.2 mg PO TID 03/08/21 03/13/21 dextroamphetamine-amphetamine 20 mg PO DAILY 03/08/21 03/13/21 [Adderall XR] guanfacine mg 10/09/21 methylphenidate HCl mg PO 10/09/21 10/09/21 quetiapine 10/09/21 Allergies Allergy/AdvReac Type Severity Reaction Status Date / Time clavulanic acid Allergy Mild Anaphylaxis Verified 10/09/21 16:44 Penicillins Allergy Mild Anaphylaxis Verified 10/09/21 16:44 amoxicillin Allergy Unknown Hives / Verified 10/09/21 16:44 Red Face BETA-LACTAMASE Allergy Unknown Hives Uncoded 10/09/21 16:44 Review of Systems Review of Systems: CONSTITUTIONAL: Denies malaise, chills, sweats, or fever. EYES: Denies visual changes, redness, or discharge. ENT: Denies rhinorrhea, congestion, sinus pain, otalgia or sore throat. Reports left upper dental pain and facial swelling CARDIOVASCULAR: Denies chest pain, palpitations, or edema. RESPIRATORY: Denies cough or dyspnea. SKIN: Denies rash or itching. MUSCULOSKELETAL: Denies myalgia. NEUROLOGIC: Denies headache. All systems reviewed & are unremarkable except as noted in HPI and below PMFSH Past Medical History Medical History (Updated 10/09/21 @ 16:55 by Jessi Valerio NP) Anxiety Paranoid schizophrenia Surgical History Surgical History History of ankle surgery Social History Social History Tobacco type: e-cigarettes/vaping Substance use: current Substance use type: marijuana Gender identity (if verbalized by the patient): Male Comments At time of signature, agree with nursing past medical, surgical, social and family history. There is no relevant family history pertinent to the presenting complaint Exam Narrative: GENERAL: Well-appearing, well-nourished, and in no acute distress. HEAD: Normocephalic, atraumatic. EYES: PERRLA, sclera clear, and EOMI. ENT: Nares clear, turbinates pink, no rhinorrhea or epistaxis. Mucous membranes moist. TM pearly martin with sharp light reflex bilaterally; no tragal tenderness. Oropharynx without erythema or lesions. Tonsils not enlarged and without exudate. Missing teeth, broken teeth, caries throughout. Left upper facial swelling noted NECK: Supple. No lymphadenopathy. CHEST: No respiratory distress. Speaks in full sentences. HEART: Regular rate and rhythm. SKIN: Warm, dry, no visible rash. NEURO: Alert and oriented x3. PSYCH: Normal mood and affect Course Course Emergency Course: Patient is aware of diagnosis, understands and agrees to treatment plan. Anticipatory guidance given. Patient agrees to follow-up as directed and is aware of reasons to seek care at the emergency department. Portions of this record may have been created with voice recognition software Vital Signs Vital signs: Reviewed. MDM - Dental/Oral MDM Narrative Medical decision making narrative: Patients pain and complaint coupled with physical findings are consistant with dentalgia. There are no focal signs of space occupying lesions that are compromising to the airway; no dysphagia, odynophagia, dysphonia, or dyspnea. No uvular deviation or soft palate edema. Patient is non-toxic appearing. The floor of the mouth is soft with no signs of Carmelo's Angina;
[2021-10-09 16:43] VITALS: BP 123/84; PULSE 108; RESP 16; TEMP 36.8; O2SAT 99
== END 2021-10-09 17:03 | disposition home or self-care (01) ==
PROVIDERS: Emergency Provider Nurse Practitioner
DX: K04.7 Periapical abscess without sinus (principal); F17.290 Nicotine dependence, other tobacco product, uncomplicated; F41.9 Anxiety disorder, unspecified
CPT/HCPCS: 99213; G0463

== ENCOUNTER 2022-06-15 21:12 | Emergency (ER) | payer OTHER, MEDICAID, SELFPAY ==
[2022-06-15 21:12] VITALS: BP 146/70; PULSE 92; RESP 16; TEMP 36.6; O2SAT 98
--- NOTE | 2022-06-15 21:14 | ED.NAVMDI ---
HPI - Nausea/Vomiting/Diarrhea General Chief complaint: Nausea/Vomiting/Diarrhea Stated complaint: ambulance Time Seen by Provider: 06/15/22 21:14 Source: patient, EMS and RN notes reviewed Mode of arrival: EMS Limitations: no limitations History of Present Illness HPI Narrative: patient states that he had some left over and she Batsheva is that his mother had made yesterday. Shortly after this he started vomiting. He said he vomited about 8 times and has had some loose stools 2. Says after the vomiting he got short of breath felt like he could not breathe felt like he was having 1 of his anxiety attacks. MD elicited complaint: nausea, vomiting and diarrhea Onset (ago): day(s) (1) Description of vomiting: bilious Description of diarrhea: watery Associated nausea: Yes Associated abdominal pain: No Pain consistency: intermittent Severity: moderate Exacerbating factors: eating Relieving factors: none Associated symptoms: denies other symptoms Related Data Home Medications Medication Instructions Recorded Confirmed citalopram 40 mg tablet 40 mg PO DAILY 03/08/21 06/15/22 clonidine HCl 0.1 mg tablet 0.1 mg PO BID 03/08/21 06/15/22 guanfacine 1 mg tablet 1 mg PO DAILY 10/09/21 06/15/22 methylphenidate HCl 20 mg 20 mg PO DAILY 10/09/21 06/15/22 tablet,extended release quetiapine 50 mg tablet 50 mg PO QHS 10/09/21 06/15/22 Allergies Allergy/AdvReac Type Severity Reaction Status Date / Time clavulanic acid Allergy Mild Anaphylaxis Verified 06/15/22 21:21 Penicillins Allergy Mild Anaphylaxis Verified 06/15/22 21:21 amoxicillin Allergy Unknown Hives / Verified 06/15/22 21:21 Red Face BETA-LACTAMASE Allergy Unknown Hives Uncoded 10/09/21 16:44 Review of Systems Review of Systems: All systems reviewed & are unremarkable except as noted in HPI and below PMFSH Past Medical History Medical History (Updated 06/16/22 @ 00:00 by Background Daemon) Anxiety Paranoid schizophrenia Surgical History Surgical History History of ankle surgery Social History Social History Tobacco type: e-cigarettes/vaping Substance use: current Substance use type: marijuana Gender identity (if verbalized by the patient): Male Exam Const: General: healthy appearing and no acute distress Nutritional Appearance: well nourished Orientation/consciousness: patient oriented x3 Limitations: no limitations HENMT: Head: normal to inspection Ears: external ears normal Face and sinus: normal facial exam Eyes: Conjunctivae: conjunctivae normal Cornea: corneas normal Pupils: Equal, round and reactive pupils present EOM: EOMs intact bilaterally Neck: Neck: normal visual inspection Resp: Effort & Inspection: normal respiratory effort Auscultation: clear to auscultation bilaterally Cardio: Rate: regular rate Rhythm: regular rhythm GI: GI Palp: Yes Soft to palpation and No Tenderness to palpation present (GI) Auscultation: normal bowel sounds Back/Spine/Pelvis: Cervical Spine: cervical ROM normal Thoracic/Lumbar Spine: thoraco-lumbar ROM normal Skin: General skin exam: normal color Rashes: no rashes Neuro: General: patient oriented x3, moves all extremities, no focal motor deficits and CN's II-XI intact bilaterally Speech: normal speech Extrem: General: normal to inspection and no clubbing, cyanosis or edema Psych: Mental Status: mental status grossly normal Affect: Anxious affect present Attitude: cooperative Course Course Emergency Course: patient given total of 2 L normal saline felt much better. He admits to snorting some methamphetamines 1 day prior along with daily marijuana. Vital Signs Vital signs: Vital Signs Temperature 36.6 C 06/15/22 21:12 Pulse Rate 92 06/15/22 21:12 Respiratory Rate 16 06/15/22 21:12 Blood Pressure 146/70 H 06/15/22 21:12 Pulse Oximetry 98 06/15/22 21:12 Oxygen
[2022-06-15 21:34] LABS: Basophils Absolute Auto 0.03 K/mm3 (0.00-0.10); Basophils Percent Auto 0.2 % (0.0-1.0); Eosinophils Absolute Auto 0.02 K/mm3 (0.02-0.50); Eosinophils Percent Auto 0.1 % (1.0-6.0); Hemoglobin 14.3 g/dL (14.0-18.0); Immature Granulocyte Percent A 0.6 % (0.0-0.0); Lymphocytes Absolute Auto 1.55 K/mm3 (1.10-4.50); Mean Corpuscular HGB Conc 34.9 g/dL (32.0-36.0); Mean Corpuscular Hemoglobin 32.4 pg (27.0-31.0); Mean Corpuscular Volume 92.8 fL (78.0-102.0); Mean Platelet Volume 9.8 fl (8.7-11.0); Monocytes Absolute Auto 1.01 K/mm3 (0.10-0.90); Monocytes Percent Auto 6.5 % (2.0-11.0); Neutrophils Absolute Auto 12.8 K/mm3 (1.7-7.2); Neutrophils Percent Auto 82.6 % (50.0-70.0); Platelet Count Result 275 K/mm3 (150-420); Red Blood Count 4.42 M/mm3 (4.70-6.10); Red Cell Distribution Width 12.5 % (11.6-14.4); White Blood Count 15.5 K/mm3 (4.8-10.8)
[2022-06-15] MEDS: SODIUM CHLORIDE 0.9% IV 1,000 ML 999 ML IV CONT (22:00)
[2022-06-15 22:02] LABS: Alanine Aminotransferase 23 U/L (16-63); Alkaline Phosphatase 79 U/L (46-116); Anion Gap 6 mmol/L (8-16); Aspartate Amino Transferase 16 U/L (15-37); Bilirubin,Total 0.2 mg/dL (0.00-1.00); Blood Urea Nitrogen 9 mg/dL (7-18); Calcium 9.1 mg/dL (8.5-10.1); Carbon Dioxide 30 mmol/L (21-32); Chloride 104 mmol/L (98-108); Estimated CRCL calculation 102 ml/min; Estimated Glomerular Filt Rate > 60; Ferritin 162 ng/mL (26-388); Glucose 122 mg/dL (70-99); Magnesium 1.6 mg/dL (1.8-2.4); Osmolality Calculated 289 mOsm/kg (285-295); Potassium 4.1 mmol/L (3.5-5.1); Sodium 140 mmol/L (136-145); Total Protein 7.6 g/dL (6.4-8.2)
[2022-06-15 22:06] LABS: CRP < 0.2 mg/dL (0.0-0.9)
[2022-06-15 22:10] LABS: SARS-CoV-2 RNA PCR Negative (Negative)
[2022-06-15 22:11] LABS: Lactic Acid Reflex 1.3 mmol/L (0.4-2.0)
[2022-06-15 22:56] LABS: Amphetamine Screen Urine Positive (Negative); Barbiturate Screen Urine Negative (Negative); Benzodiazepines Screen Urine Negative (Negative); Cannabinoid Screen Urine Positive (Negative); Cocaine Screen Urine Negative (Negative); Methadone Screen Urine Negative (Negative); Opiate Screen Urine Negative (Negative); Phencyclidine Screen Urine Negative (Negative)
[2022-06-15 23:27] VITALS: BP 120/80; PULSE 70; RESP 18; TEMP 36.6; O2SAT 98
--- NOTE | 2022-06-15 23:27 | PC.NURSE ---
2200 1 liter of fluid finished from EMS
== END 2022-06-15 23:30 | disposition home or self-care (01) ==
PROVIDERS: Emergency Provider Emergency Medicine
DX: R11.2 Nausea with vomiting, unspecified (principal); F15.10 Other stimulant abuse, uncomplicated; Z20.822 Contact with and (suspected) exposure to COVID-19; Z79.899 Other long term (current) drug therapy
CPT/HCPCS: 36415; 80053; 80307; 82728; 83605; 83735; 85025; 86140; 96360; 99283; C9803; J7030; U0003; U0005

== ENCOUNTER 2022-08-13 14:18 | Emergency (ER) | payer MEDICAID, SELFPAY ==
[2022-08-13 14:50] LABS: Appearance Urine Clear (Clear); Basophils Absolute Auto 0.04 K/mm3 (0.00-0.10); Basophils Percent Auto 0.4 % (0.0-1.0); Bilirubin Urine Negative (Negative); Blood Urine Negative (Negative); Eosinophils Absolute Auto 0.05 K/mm3 (0.02-0.50); Eosinophils Percent Auto 0.5 % (1.0-6.0); Glucose Urine UA Negative (Negative); Hematocrit 46.1 % (40.0-54.0); Immature Granulocyte Absolute 0.05 K/mm3 (0.00-0.00); Immature Granulocyte Percent A 0.5 % (0.0-0.0); Ketones Urine Negative (Negative); Leukocyte Esterase Ur Negative LEU/UL (Negative); Lymphocytes Absolute Auto 1.86 K/mm3 (1.10-4.50); Lymphocytes Percent Auto 17.8 % (18.0-42.0); Mean Corpuscular HGB Conc 34.7 g/dL (32.0-36.0); Mean Corpuscular Hemoglobin 32.1 pg (27.0-31.0); Mean Corpuscular Volume 92.4 fL (78.0-102.0); Mean Platelet Volume 9.5 fl (8.7-11.0); Monocytes Absolute Auto 0.89 K/mm3 (0.10-0.90); Monocytes Percent Auto 8.5 % (2.0-11.0); Neutrophils Absolute Auto 7.6 K/mm3 (1.7-7.2); Neutrophils Percent Auto 72.3 % (50.0-70.0); Nitrate Urine Negative (Negative); Platelet Count Result 299 K/mm3 (150-420); Protein Urine Negative (Negative); Red Blood Count 4.99 M/mm3 (4.70-6.10); Red Cell Distribution Width 12.6 % (11.6-14.4); Urobilinogen Urine 0.2 mg/dL (0.2-1.0); White Blood Count 10.5 K/mm3 (4.8-10.8)
[2022-08-13 14:51] LABS: Add Urine Microscopic? NO; Color Urine Light Yellow (Yellow)
[2022-08-13 14:58] LABS: Amphetamine Screen Urine Positive (Negative); Barbiturate Screen Urine Negative (Negative); Benzodiazepines Screen Urine Negative (Negative); Cannabinoid Screen Urine Negative (Negative); Cocaine Screen Urine Negative (Negative); Methadone Screen Urine Negative (Negative); Opiate Screen Urine Negative (Negative); Phencyclidine Screen Urine Negative (Negative)
[2022-08-13 15:02] VITALS: BP 107/85; PULSE 100; RESP 20; TEMP 36.6; O2SAT 98
[2022-08-13 15:15] LABS: Alanine Aminotransferase 20 U/L (16-63); Albumin Level 4.2 g/dL (3.4-5.0); Alkaline Phosphatase 82 U/L (46-116); Anion Gap 7 mmol/L (8-16); Aspartate Amino Transferase 15 U/L (15-37); Bilirubin,Total 0.7 mg/dL (0.00-1.00); Blood Urea Nitrogen 8 mg/dL (7-18); Calcium 9.4 mg/dL (8.5-10.1); Carbon Dioxide 29 mmol/L (21-32); Chloride 101 mmol/L (98-108); Estimated CRCL calculation 113 ml/min; Estimated Glomerular Filt Rate > 60; Ethanol 4 mg/dL (0-6); Glucose 101 mg/dL (70-99); Osmolality Calculated 282 mOsm/kg (285-295); Potassium 4.6 mmol/L (3.5-5.1); Sodium 137 mmol/L (136-145); Thyroid Stimulating Hormone 0.34 uIU/mL (0.36-3.74); Total Protein 8.5 g/dL (6.4-8.2)
--- NOTE | 2022-08-13 15:41 | ECG_ITS ---
Measurements Intervals [place] Rate: 69 P: 37 MS: 137 QRS: 27 QRSD: 82 T: 25 QT: 365 QTc: 392 Interpretive Statements SINUS RHYTHM NORMAL ELECTROCARDIOGRAM COMPARED TO ECG 07/05/2020 21:44:37 DIFFERENT PRECORDIAL LEAD POSITION Electronically Signed On 08-14-2022 14:14:24 CDT by Travis Rahman M.D.
[2022-08-13 16:14] LABS: SARS-CoV-2 Ag Negative (Negative)
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
--- NOTE | 2022-08-13 17:12 | PC.NURSE ---
1700 paged out for Amadou Royal to call for eval
--- NOTE | 2022-08-13 17:49 | PC.NURSE ---
5020 DISPATCH CALLED AGAIN TO PAGE OUT [facility] FOR EVAL NOT RETURN CALL AT THIS TIME
--- NOTE | 2022-08-13 17:50 | PC.NURSE ---
1645 PT GIVEN DINNER AND WATCHING TV
--- NOTE | 2022-08-13 17:50 | PC.NURSE ---
1751 PT RESTING QUIETLY IN ROOM WITH TV ON 1754 [facility] RETURNED CALL STATES SHE WOULD BE HERE THAT SHE WAS IN [place] FINISHING UP
--- NOTE | 2022-08-13 19:15 | PC.NURSE ---
191 nurse to nurse report given to amol donovan
[2022-08-13] MEDS: IBUPROFEN 600 MG TABLET PO (19:31)
--- NOTE | 2022-08-13 19:37 | PC.NURSE ---
PT WAS REPORTING HEADACHE, ERP NOTIFIED AND MEDICATION ADMINISTERED ORDERED WITHOUT DIFFICULTY. [facility] HAS ARRIVED TO ASSESS PT AT THIS TIME. PT IS COOPERATIVE. DENIES SI AT PRESENT. WILL CONTINUE TO MONITOR.
--- NOTE | 2022-08-13 20:04 | PC.NURSE ---
PT HAS A SAFETY PLAN BY [employer] AND PT IS TO BE DC HOME. PT DENIES SI OR HI. PT IS CALLING FOR A RIDE AT THIS TIME.
[2022-08-13 20:08] VITALS: BP 110/80; PULSE 58; RESP 18; O2SAT 98
== END 2022-08-13 20:10 | disposition home or self-care (01) ==
PROVIDERS: Emergency Provider Emergency Medicine
DX: F29 Unspecified psychosis not due to a substance or known physiological condition (principal); F32.A Depression, unspecified; Z20.822 Contact with and (suspected) exposure to COVID-19
CPT/HCPCS: 36415; 80053; 80307; 81003; 84443; 85025; 87426; 93005; 99285; A9270; C9803

== ENCOUNTER 2022-09-23 22:12 | Emergency (ER) | payer OTHER, SELFPAY ==
--- NOTE | ~2022-09-23 | XR_ITS ---
EXAMINATION: XR chest 1V portable INDICATION: Left chest pain TECHNIQUE: Portable AP chest at 2310 hours COMPARISON: 11/26/2011 FINDINGS: The lungs are free of acute opacities. No pleural effusion or pneumothorax. The cardiomedia stinal silhouette is normal. The visualized bones and soft tissues are unremarkable. IMPRESSION: 1. No acute cardiopulmonary abnormality. Reviewed, dictated and finalized at location A. TIVE PERFUMER
[2022-09-23 22:15] VITALS: BP 115/74; PULSE 82; RESP 20; TEMP 36.6; O2SAT 100
--- NOTE | 2022-09-23 22:27 | ECG_ITS ---
Measurements Intervals [place] Rate: 71 P: 6 MO: 128 QRS: 30 QRSD: 86 T: 16 QT: 382 QTc: 417 Interpretive Statements SINUS RHYTHM Normal EKG COMPARED TO ECG 08/13/2022 16:05:47 NO SIGNIFICANT CHANGES Electronically Signed On 09-25-2022 15:07:18 BLUING [employer]ER by Jesus Manuel Springer M.D.
[2022-09-23] MEDS: IBUPROFEN 400 MG TABLET 800 MG PO (22:58)
[2022-09-23] MEDS: ASPIRIN 325 MG ENTERIC TABLET PO (22:58)
[2022-09-23 23:08] LABS: Basophils Absolute Auto 0.04 K/mm3 (0.00-0.10); Basophils Percent Auto 0.3 % (0.0-1.0); Eosinophils Absolute Auto 0.04 K/mm3 (0.02-0.50); Eosinophils Percent Auto 0.3 % (1.0-6.0); Immature Granulocyte Absolute 0.06 K/mm3 (0.00-0.00); Immature Granulocyte Percent A 0.4 % (0.0-0.0); Lymphocytes Absolute Auto 1.41 K/mm3 (1.10-4.50); Mean Corpuscular HGB Conc 34.1 g/dL (32.0-36.0); Mean Corpuscular Volume 90.7 fL (78.0-102.0); Mean Platelet Volume 9.5 fl (8.7-11.0); Monocytes Absolute Auto 0.89 K/mm3 (0.10-0.90); Monocytes Percent Auto 6.3 % (2.0-11.0); Neutrophils Absolute Auto 11.7 K/mm3 (1.7-7.2); Neutrophils Percent Auto 82.7 % (50.0-70.0); Platelet Count Result 270 K/mm3 (150-420); Red Blood Count 4.52 M/mm3 (4.70-6.10); Red Cell Distribution Width 12.1 % (11.6-14.4); White Blood Count 14.1 K/mm3 (4.8-10.8)
[2022-09-23 23:26] LABS: Lactic Acid Reflex 0.5 mmol/L (0.4-2.0)
--- NOTE | 2022-09-23 23:30 | PC.NURSE ---
Atempted to have pt urinate, he refuses to give urine and goes back to sleep. Pt stable, VSS.
[2022-09-23 23:33] LABS: Alanine Aminotransferase 18 U/L (16-63); Albumin Level 3.9 g/dL (3.4-5.0); Alkaline Phosphatase 81 U/L (46-116); Anion Gap 10 mmol/L (8-16); Bilirubin,Total 0.3 mg/dL (0.00-1.00); Blood Urea Nitrogen 9 mg/dL (7-18); Calcium 9.2 mg/dL (8.5-10.1); Carbon Dioxide 26 mmol/L (21-32); Chloride 104 mmol/L (98-108); Estimated CRCL calculation 124 ml/min; Estimated Glomerular Filt Rate > 60; Glucose 109 mg/dL (70-99); Osmolality Calculated 289 mOsm/kg (285-295); Sodium 140 mmol/L (136-145); Total Protein 7.8 g/dL (6.4-8.2)
[2022-09-23 23:34] VITALS: BP 122/75; PULSE 78; RESP 18; O2SAT 100
[2022-09-23 23:36] LABS: Aspartate Amino Transferase < 3 U/L (15-37)
[2022-09-24 00:47] VITALS: BP 115/82; PULSE 78; RESP 18; TEMP 36.6; O2SAT 97
--- NOTE | 2022-09-24 00:49 | ED.CHESTPAIN ---
HPI - Chest Pain General Chief Complaint: Chest Pain Stated Complaint: ambulance Time Seen by Provider: 09/23/22 22:15 Source: patient, EMS and RN notes reviewed Mode of arrival: EMS Limitations: no limitations History of Present Illness MD complaint: chest pain Onset (ago): hour(s) (12) Timing of current episode: now resolved Prior episodes: Yes Onset: during rest Pain location: left chest Pain radiation: none Severity: mild Pain scale (0-10): 2 Quality: aching and dull Relieving factors: nothing Exacerbating factors: nothing Treatment prior to arrival: none Related Data Home Medications Medication Instructions Recorded Confirmed citalopram 40 mg tablet 40 mg PO DAILY 03/08/21 09/23/22 clonidine HCl 0.1 mg tablet 0.1 mg PO BID 03/08/21 09/23/22 guanfacine 1 mg tablet 1 mg PO DAILY 10/09/21 09/23/22 methylphenidate HCl 20 mg 20 mg PO DAILY 10/09/21 09/23/22 tablet,extended release quetiapine 50 mg tablet 50 mg PO QHS 10/09/21 09/23/22 Allergies Allergy/AdvReac Type Severity Reaction Status Date / Time clavulanic acid Allergy Mild Anaphylaxis Verified 06/15/22 21:21 Penicillins Allergy Mild Anaphylaxis Verified 06/15/22 21:21 amoxicillin Allergy Unknown Hives / Verified 06/15/22 21:21 Red Face BETA-LACTAMASE Allergy Unknown Hives Uncoded 10/09/21 16:44 Review of Systems Review of Systems: All systems reviewed & are unremarkable except as noted in HPI and below Constitutional: Constitutional: Reports no additional constitutional complaints Eyes: Eyes: Reports no additional eye complaints ENT: Reports system reviewed and no additional complaints, except as documented Cardiovascular: Cardiovascular: Reports no additional cardiovascular complaints and Reports chest pain Respiratory: Respiratory: Reports no additional respiratory complaints Gastrointestinal: Gastrointestinal: Reports no additional gastrointestinal complaints Musculoskeletal: Musculoskeletal: Reports no additional musculoskeletal complaints Integumentary/Breasts: Skin/Breast: Reports system reviewed and no additional complaints, except as docu Neurologic: Reports system reviewed and no additional complaints, except as documented Psychiatric: Psychiatric: Reports no additional psychiatric complaints Endocrine: Endocrine: Reports no additional endocrine complaints Hematologic/Lymphatic: Hematologic/Lymphatic: Reports no additional hematologic/lymphatic complaints Allergic/Immunologic: Allergic/Immunologic: Reports no additional allergic/immunologic complaints [facility] Past Medical History Medical History (Updated 09/24/22 @ 04:17 by Freda Bruner MD) Anxiety Atypical chest pain Bronchitis Paranoid schizophrenia Surgical History Surgical History History of ankle surgery Social History Social History Tobacco type: e-cigarettes/vaping Substance use: current Substance use type: marijuana and methamphetamine Gender identity (if verbalized by the patient): Male Exam Const: General: no acute distress and well nourished Nutritional Appearance: well nourished Orientation/consciousness: patient oriented x3 Limitations: no limitations HENMT: Head: normal to inspection Ears: external ears normal, TM's normal bilaterally and EAC's normal Face/Nose/Sinus: Normal external nose present, Normal nares present, normal facial exam and sinuses nontender Face and sinus: normal facial exam and sinuses nontender Mouth: Yes Normal oral and palatal mucosa present and Yes moist mucous membranes Teeth and gingiva: dentition normal Throat: posterior oropharynx normal Eyes: Conjunctivae: conjunctivae normal Pupils: Equal, round and reactive pupils present EOM: EOMs intact bilaterally Neck: Neck: normal visual inspection, no lymphadenopathy and no meningeal signs Chest: Chest palpation & inspection: normal inspection
== END 2022-09-24 01:07 | disposition home or self-care (01) ==
PROVIDERS: Emergency Provider Emergency Medicine
DX: R07.89 Other chest pain (principal); J40 Bronchitis, not specified as acute or chronic
CPT/HCPCS: 36415; 71045; 80053; 83605; 84484; 85025; 93005; 99284; A9270

== ENCOUNTER 2022-11-30 22:06 | Emergency (ER) | payer OTHER, SELFPAY ==
[2022-11-30 22:12] VITALS: BP 111/87; PULSE 92; PULSE 93; RESP 20; TEMP 36; O2SAT 99
[2022-11-30] MEDS: SODIUM CHLORIDE 0.9% IV 1,000 ML 999 ML IV CONT ×2 (22:50→23:43)
[2022-11-30] MEDS: ONDANSETRON INJ 4 MG/2 ML VIAL IV PUSH (22:50)
[2022-11-30 23:00] VITALS: BP 105/66; PULSE 82; RESP 18; O2SAT 95
[2022-11-30 23:25] LABS: Basophils Absolute Auto 0.04 K/mm3 (0.00-0.10); Basophils Percent Auto 0.5 % (0.0-1.0); Eosinophils Absolute Auto 0.06 K/mm3 (0.02-0.50); Eosinophils Percent Auto 0.8 % (1.0-6.0); Immature Granulocyte Absolute 0.03 K/mm3 (0.00-0.00); Immature Granulocyte Percent A 0.4 % (0.0-0.0); Lymphocytes Percent Auto 20.1 % (18.0-42.0); Mean Corpuscular HGB Conc 34.2 g/dL (32.0-36.0); Mean Corpuscular Hemoglobin 32.2 pg (27.0-31.0); Mean Corpuscular Volume 94.1 fL (78.0-102.0); Mean Platelet Volume 9.2 fl (8.7-11.0); Monocytes Absolute Auto 0.74 K/mm3 (0.10-0.90); Monocytes Percent Auto 9.3 % (2.0-11.0); Neutrophils Absolute Auto 5.5 K/mm3 (1.7-7.2); Neutrophils Percent Auto 68.9 % (50.0-70.0); Platelet Count Result 201 K/mm3 (150-420); Red Blood Count 4.04 M/mm3 (4.70-6.10); Red Cell Distribution Width 12.9 % (11.6-14.4)
[2022-11-30 23:30] VITALS: BP 100/68; PULSE 72; RESP 18; O2SAT 100
--- NOTE | 2022-11-30 23:35 | ED.GENADULT ---
HPI - General Adult General Chief complaint: Nausea/Vomiting/Diarrhea Stated complaint: vomitting History of Present Illness HPI narrative: the patient is a 27-year-old male with history of schizophrenia and anxiety disorder. He presents with nausea vomiting and diarrhea since yesterday. He had 7 episodes of vomiting yesterday and and another 5 today including once here in the emergency room. He does have watery diarrhea, once today, 3 episodes yesterday. He feels thirsty and dry. No abdominal pain. No fevers or chills. No URI symptoms. No hematemesis or hematochezia or melena. No urinary symptoms. Related Data Home Medications Medication Instructions Recorded Confirmed citalopram 40 mg tablet 40 mg PO DAILY 03/08/21 09/23/22 clonidine HCl 0.1 mg tablet 0.1 mg PO BID 03/08/21 09/23/22 guanfacine 1 mg tablet 1 mg PO DAILY 10/09/21 09/23/22 methylphenidate HCl 20 mg 20 mg PO DAILY 10/09/21 09/23/22 tablet,extended release quetiapine 50 mg tablet 50 mg PO QHS 10/09/21 09/23/22 Allergies Allergy/AdvReac Type Severity Reaction Status Date / Time clavulanic acid Allergy Mild Anaphylaxis Verified 11/30/22 23:07 Penicillins Allergy Mild Anaphylaxis Verified 11/30/22 23:07 amoxicillin Allergy Unknown Hives / Verified 11/30/22 23:07 Red Face BETA-LACTAMASE Allergy Unknown Hives Uncoded 10/09/21 16:44 Review of Systems Review of Systems: All systems reviewed & are unremarkable except as noted in HPI and below Constitutional: Constitutional: Reports no additional constitutional complaints, Denies anorexia, Denies body ache(s), Denies chills, Denies excessive sweating, Reports fatigue, Denies fever(s), Denies frequent falls, Denies headache(s), Reports malaise and Denies poor appetite Eyes: Eyes: Reports no additional eye complaints, Denies blurry vision, Denies change in vision, Denies irritation, Denies itchy eyes and Denies photophobia ENT: Reports system reviewed and no additional complaints, except as documented, Reports Normal hearing present, Denies change in voice, Denies dysphagia, Denies vertigo, Denies dizziness, Denies ear discharge, Denies headache(s), Denies hearing loss, Denies hoarseness, Denies nasal congestion, Denies neck pain, Denies sinus pressure, Denies sore throat and Denies throat swelling Cardiovascular: Cardiovascular: Reports no additional cardiovascular complaints, Denies chest pain, Denies syncope, Denies rapid heart rate, Denies irregular heart rhythm, Denies leg edema, Denies dyspnea and Denies slow heart rate Respiratory: Respiratory: Reports no additional respiratory complaints, Denies cough, Denies dyspnea, Denies stridor and Denies wheezing Gastrointestinal: Gastrointestinal: Reports no additional gastrointestinal complaints, Denies abdominal pain, Denies melena, Denies hematochezia, Denies dysphagia, Reports diarrhea, Reports nausea and Reports vomiting Genitourinary: Genitourinary: Denies hematuria, Denies oliguria, Denies dysuria, Denies flank pain, Denies urinary frequency and Denies urinary urgency Musculoskeletal: Musculoskeletal: Reports no additional musculoskeletal complaints, Denies abnormal gait, Denies back pain, Denies myalgias, Denies arthralgias, Denies joint swelling, Denies limited range of motion, Denies muscle cramps, Denies muscle weakness, Denies neck pain and Denies numbness Integumentary/Breasts: Skin/Breast: Reports system reviewed and no additional complaints, except as docu, Denies breast pain, Denies change in pigmentation, Denies pruritus, Denies erythema and Denies wounds Neurologic: Reports system reviewed and no additional complaints, except as documented, Reports Normal hearing present, Denies Abnormal speech present, Denies abnormal gait, Denies confusion, Denies vertigo, Denies dizziness, Denies syncope, Denies frequent falls, Denies headache(s), Denies focal weakness, Denies numbness and Denies paresthesias Psychiatric: Psychiatric: Reports no additional psychiatri
[2022-11-30 23:50] VITALS: BP 107/69; PULSE 77; RESP 16; O2SAT 100
[2022-11-30 23:55] LABS: Alanine Aminotransferase 22 U/L (16-63); Albumin Level 3.4 g/dL (3.4-5.0); Alkaline Phosphatase 63 U/L (46-116); Anion Gap 5 mmol/L (8-16); Aspartate Amino Transferase 13 U/L (15-37); Bilirubin,Total 0.2 mg/dL (0.00-1.00); Blood Urea Nitrogen 11 mg/dL (7-18); Calcium 8.3 mg/dL (8.5-10.1); Carbon Dioxide 30 mmol/L (21-32); Chloride 107 mmol/L (98-108); Estimated CRCL calculation 107 ml/min; Estimated Glomerular Filt Rate > 60; Glucose 104 mg/dL (70-99); Magnesium 1.4 mg/dL (1.8-2.4); Osmolality Calculated 293 mOsm/kg (285-295); Potassium 3.9 mmol/L (3.5-5.1); Sodium 142 mmol/L (136-145); Total Protein 6.8 g/dL (6.4-8.2)
[2022-11-30 23:56] LABS: Ethanol < 3 mg/dL (0-6)
[2022-12-01 00:15] VITALS: BP 108/64; PULSE 98; RESP 18; O2SAT 100
[2022-12-01] MEDS: MAGNESIUM SULF 2 GM/WATER 50ML 2 GM/50 ML BAG IVPB (00:15)
[2022-12-01 00:17] LABS: Amylase 26 U/L (25-115); Lipase 21 U/L (16-77)
[2022-12-01 01:30] VITALS: BP 103/74; PULSE 99; RESP 18; TEMP 36.6; O2SAT 100
== END 2022-12-01 01:33 | disposition home or self-care (01) ==
PROVIDERS: Emergency Provider Emergency Medicine
DX: K52.9 Noninfective gastroenteritis and colitis, unspecified (principal); E83.42 Hypomagnesemia; F41.9 Anxiety disorder, unspecified; F20.9 Schizophrenia, unspecified; F17.290 Nicotine dependence, other tobacco product, uncomplicated
CPT/HCPCS: 36415; 80053; 80307; 82150; 83690; 83735; 85025; 96361; 96365; 96375; 99284; J2405; J3475; J7030

== ENCOUNTER 2022-12-29 18:11 | Emergency (ER) | payer OTHER, SELFPAY ==
[2022-12-29 18:16] VITALS: BP 124/72; PULSE 100; RESP 18; TEMP 36.6; O2SAT 100
[2022-12-29 18:18] VITALS: BP 124/72; PULSE 100; RESP 18; TEMP 36.6; O2SAT 100
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
[2022-12-29] MEDS: TETANUS,DIPHTHERIA,AC PERTUSSIS ADULT 0.5 ML (ADACEL) IM (18:27)
== END 2022-12-29 18:50 | disposition home or self-care (01) ==
LOC: CHSED 18:45
PROVIDERS: Emergency Provider Preventive Medicine Aerospace Medicine
DX: S50.312A Abrasion of left elbow, initial encounter (principal); Z23 Encounter for immunization; F17.290 Nicotine dependence, other tobacco product, uncomplicated; V19.88XA Pedal cyclist (driver) (passenger) injured in other specified transport accidents, initial encounter
CPT/HCPCS: 90471; 90715; 99282

== ENCOUNTER 2023-05-27 22:31 | Emergency (ER) | payer OTHER, SELFPAY ==
--- NOTE | ~2023-05-27 | XR_ITS ---
EXAMINATION: XR hand RT min 3V INDICATION: Right hand pain and laceration TECHNIQUE: Three views of the right hand are obtained. COMPARISON: 05/20/2017 FINDINGS: Bone alignment is normal. There is no fracture. The joint spaces are normal. There is a sof t tissue laceration of the third finger dorsal to the proximal interphalangeal joint. A subtle 1 mm d ensity is seen in the soft tissues dorsal to the proximal aspect of the third middle phalanx. IMPRESSION: 1. No acute osseous abnormality. 2. Soft tissue laceration of the third finger dorsal to the proximal interphalangeal joint with possi ble associated 1 mm radiopaque foreign body. Reviewed, dictated and finalized at location F. IMPRESSION: 1. No acute osseous abnormality. 2. Soft tissue laceration of the third finger dorsal to the proximal interphala ngeal joint with possible associated 1 mm radiopaque foreign body.
--- NOTE | 2023-05-27 22:40 | ED.GENADULT ---
HPI - General Adult General Chief complaint: Wound/Laceration Stated complaint: laceration to R middle finger Time Seen by Provider: 05/27/23 22:37 History of Present Illness HPI narrative: Owen is a 27M with a PMH of multiple psychiatric conditions and asthma that presented to the ED after he his hand through a jimenez of glass. He did not elaborate more details but denies other injuries. He reports his tetanus is up to date. No loss of sensation over the right 3rd digit. Related Data Home Medications Medication Instructions Recorded Confirmed No Home Medications 05/27/23 05/27/23 Allergies Allergy/AdvReac Type Severity Reaction Status Date / Time clavulanic acid Allergy Mild Anaphylaxis Verified 12/29/22 18:16 Penicillins Allergy Mild Anaphylaxis Verified 12/29/22 18:16 amoxicillin Allergy Unknown Hives / Verified 12/29/22 18:16 Red Face BETA-LACTAMASE Allergy Unknown Hives Uncoded 10/09/21 16:44 Review of Systems Review of Systems: All systems reviewed & are unremarkable except as noted in HPI and below PMFSH Past Medical History Medical History Anxiety Atypical chest pain Bronchitis Paranoid schizophrenia Surgical History Surgical History History of ankle surgery Social History Social History Tobacco type: e-cigarettes/vaping Substance use: current Substance use type: marijuana and methamphetamine Gender identity (if verbalized by the patient): Male Exam Const: General: healthy appearing Nutritional Appearance: well nourished Orientation/consciousness: patient oriented x3 Limitations: no limitations HENMT: Head: normal to inspection Ears: external ears normal Eyes: Conjunctivae: conjunctivae normal Pupils: Equal, round and reactive pupils present EOM: EOMs intact bilaterally Neck: Neck: normal visual inspection Chest: Chest palpation & inspection: normal inspection of the chest Resp: Effort & Inspection: normal respiratory effort Cardio: Rate: regular rate Skin: General skin exam: normal color Rashes: no rashes Other: 4cm laceration on the posterior side of his right hand and a 2cm laceration over the right 2nd digit PIP joint Neuro: General: patient oriented x3 and moves all extremities Cranial nerves: Yes Nystagmus not present Speech: normal speech Extrem: General: normal to inspection Psych: Mental Status: mental status grossly normal Affect: normal affect Course Course Emergency Course: Ordered radiographs EXAMINATION: XR hand RT min 3V INDICATION: Right hand pain and laceration TECHNIQUE: Three views of the right hand are obtained. COMPARISON: 05/20/2017 FINDINGS: Bone alignment is normal. There is no fracture. The joint spaces are normal. There is a soft tissue laceration of the third finger dorsal to the proximal interphalangeal joint. A subtle 1 mm density is seen in the soft tissues dorsal to the proximal aspect of the third middle phalanx. IMPRESSION: 1. No acute osseous abnormality. 2. Soft tissue laceration of the third finger dorsal to the proximal interphalangeal joint with possible associated 1 mm radiopaque foreign body. Procedures Laceration Laceration 1: Date: 05/27/23 Time: : Site: hand (right 3rd finger) Side (If applicable): right Size (cm): 3 Description: flap Depth: simple, single layer Local Anesthetic: lidocaine 1% Amount of anesthesia used (mL): 1 ====== Skin Level ====== Skin layer closed with: nylon Size (cm): 4-0 Number of sutures: 5 Technique: simple, interrupted ====== Subcutaneous Layer ====== ====== Muscle Layer ====== ====== Tendon Layer ====== Laceration 2: Date: 05/27/23 Time: 23:28 Site: hand Side (If appl
[2023-05-27 22:41] VITALS: BP 140/90; PULSE 78; RESP 20; TEMP 36.6; O2SAT 98
[2023-05-27] MEDS: LIDOCAINE HCL 1% LOCAL INJ 10 ML VIAL 2 ML INFILTRATE (22:55)
[2023-05-27] MEDS: CLINDAMYCIN HCL 150 MG CAP 450 MG PO (23:28)
[2023-05-27 23:51] VITALS: BP 140/78; PULSE 78; RESP 20; TEMP 36.6; O2SAT 98
== END 2023-05-27 23:53 | disposition home or self-care (01) ==
PROVIDERS: Emergency Provider Family Medicine
DX: S61.212A Laceration without foreign body of right middle finger without damage to nail, initial encounter (principal); J45.909 Unspecified asthma, uncomplicated; F17.290 Nicotine dependence, other tobacco product, uncomplicated; W25.XXXA Contact with sharp glass, initial encounter
CPT/HCPCS: 12002; 73130; 99283; A9270

== ENCOUNTER 2023-06-23 15:56 | Emergency (ER) | payer OTHER, SELFPAY ==
[2023-06-23 15:56] VITALS: BP 131/86; PULSE 90; RESP 18; TEMP 36.6; O2SAT 98
--- NOTE | 2023-06-23 16:12 | ED.SKABFB ---
HPI - Skin/Abscess/Foreign Bdy General Chief complaint: Wound/Laceration Stated complaint: finger injury Time Seen by Provider: 06/23/23 16:04 Source: patient Mode of arrival: ambulatory Limitations: no limitations History of Present Illness HPI narrative: 28-year-old male with a history of paranoid schizophrenia, asthma had laceration over the back of his right middle finger over the proximal interphalangeal joint early this month. The patient received stitches for his laceration. The wound got infected following which he received antibiotics. His wound appeared to have healed but he got reinjured and presents with swelling of the right middle phalanx PIP with cellulitis /abscess with some discharge. No fever or chills. The patient has multiple abrasions which she states got it while skateboarding. MD complaint: abscess/boil Onset (ago): month(s) ( Present for a month) Tetanus up to date: yes Location: R hand Severity: moderate Quality: aching Pain Consistency: constant Relieving factors: none Exacerbating factors: none Associated symptoms: denies other symptoms Treatments prior to arrival: antibiotic Related Data Allergies Allergy/AdvReac Type Severity Reaction Status Date / Time clavulanic acid Allergy Mild Anaphylaxis Verified 06/23/23 16:02 Penicillins Allergy Mild Anaphylaxis Verified 06/23/23 16:02 amoxicillin Allergy Unknown Hives / Verified 06/23/23 16:02 Red Face BETA-LACTAMASE Allergy Unknown Hives Uncoded 06/23/23 16:03 Review of Systems Review of Systems: All systems reviewed & are unremarkable except as noted in HPI and below Constitutional: Constitutional: Reports as per HPI and Reports no additional constitutional complaints Eyes: Eyes: Reports as per HPI and Reports no additional eye complaints ENT: Reports system reviewed and no additional complaints, except as documented and Reports as per HPI Cardiovascular: Cardiovascular: Reports as per HPI and Reports no additional cardiovascular complaints Respiratory: Respiratory: Reports as per HPI and Reports no additional respiratory complaints Gastrointestinal: Gastrointestinal: Reports as per HPI and Reports no additional gastrointestinal complaints Genitourinary: Genitourinary: Reports no additional male genitourinary complaints and Reports as per HPI Musculoskeletal: Musculoskeletal: Reports no additional musculoskeletal complaints and Reports as per HPI Integumentary/Breasts: Skin/Breast: Reports system reviewed and no additional complaints, except as docu and Reports as per HPI Comments: abscess/ cellulitis on the back of right middle finger PIP Neurologic: Reports system reviewed and no additional complaints, except as documented and Reports as per HPI Psychiatric: Psychiatric: Reports no additional psychiatric complaints and Reports as per HPI Endocrine: Endocrine: Reports no additional endocrine complaints and Reports as per HPI Hematologic/Lymphatic: Hematologic/Lymphatic: Reports no additional hematologic/lymphatic complaints and Reports as per HPI Allergic/Immunologic: Allergic/Immunologic: Reports no additional allergic/immunologic complaints and Reports as per HPI PMFSH Past Medical History Medical History Anxiety Atypical chest pain Bronchitis Paranoid schizophrenia Surgical History Surgical History History of ankle surgery Social History Social History Tobacco type: e-cigarettes/vaping Substance use: current Substance use type: marijuana and methamphetamine Gender identity (if verbalized by the patient): Male Exam Const: General: healthy appearing and no acute distress Nutritional Appearance: well nourished Orientation/consciousness: patient oriented x3 Limitations: no limitations HENMT: Head: normal to inspection Ears: external e
[2023-06-23 16:40] LABS: Basophils Absolute Auto 0.04 K/mm3 (0.00-0.10); Basophils Percent Auto 0.6 % (0.0-1.0); Eosinophils Absolute Auto 0.07 K/mm3 (0.02-0.50); Eosinophils Percent Auto 1.1 % (1.0-6.0); Hematocrit 36.4 % (40.0-54.0); Hemoglobin 12.9 g/dL (14.0-18.0); Immature Granulocyte Absolute 0.01 K/mm3 (0.00-0.00); Immature Granulocyte Percent A 0.2 % (0.0-0.0); Lymphocytes Absolute Auto 2.27 K/mm3 (1.10-4.50); Lymphocytes Percent Auto 34.6 % (18.0-42.0); Mean Corpuscular HGB Conc 35.4 g/dL (32.0-36.0); Mean Corpuscular Hemoglobin 32.7 pg (27.0-31.0); Mean Corpuscular Volume 92.2 fL (78.0-102.0); Mean Platelet Volume 9.9 fl (8.7-11.0); Monocytes Absolute Auto 0.98 K/mm3 (0.10-0.90); Monocytes Percent Auto 14.9 % (2.0-11.0); Neutrophils Absolute Auto 3.2 K/mm3 (1.7-7.2); Neutrophils Percent Auto 48.6 % (50.0-70.0); Platelet Count Result 234 K/mm3 (150-420); Red Blood Count 3.95 M/mm3 (4.70-6.10); Red Cell Distribution Width 12.5 % (11.6-14.4); White Blood Count 6.6 K/mm3 (4.8-10.8)
[2023-06-23 16:55] LABS: Lactic Acid Reflex 0.8 mmol/L (0.4-2.0)
[2023-06-23 17:02] LABS: Alanine Aminotransferase 19 U/L (16-63); Albumin Level 3.8 g/dL (3.4-5.0); Alkaline Phosphatase 90 U/L (46-116); Anion Gap 9 mmol/L (8-16); Aspartate Amino Transferase 17 U/L (15-37); Bilirubin,Total 0.5 mg/dL (0.00-1.00); Blood Urea Nitrogen 13 mg/dL (7-18); Calcium 8.8 mg/dL (8.5-10.1); Carbon Dioxide 27 mmol/L (21-32); Chloride 106 mmol/L (98-108); Estimated CRCL calculation 106 ml/min; Estimated Glomerular Filt Rate > 60; Glucose 97 mg/dL (70-99); Osmolality Calculated 294 mOsm/kg (285-295); Potassium 3.6 mmol/L (3.5-5.1); Sodium 142 mmol/L (136-145); Total Protein 7.5 g/dL (6.4-8.2)
[2023-06-23 17:10] VITALS: BP 128/78; PULSE 72; RESP 18; O2SAT 98
--- NOTE | 2023-06-26 14:48 | PC.NURSE ---
Final wound culture of middle finger results: Patient d/c on clindamycin and cipro, both are susceptible, no change in medication or further treatment needed at this time. Per Dr. salamanca.
--- NOTE | 2023-06-29 12:33 | PC.NURSE ---
Addendum entered by Patricia Atwood RN 06/29/23 12:36: NO FURTHER ACTION NEEDED PER C&S AND DR GOODMAN. Original Note: FINAL BLOOD CULTURE RESULTS X2: ANAEROBIC GRAM STAIN: MODERATED WHITE BLOOD CELLS SEEN RARE. GRAM POSITIVE COCCI IN CLUSTERS. RESULT: NO ANAEROBES ISOLATED. AEROBIC: ISOLATE 1: HEAVY GROWTH OF STAPHYLOCOCCUS AUREAUS. NEGATIVE FOR INDUCIBLE CLINDAMYCIN RESISTANCE.
== END 2023-06-23 17:10 | disposition home or self-care (01) ==
PROVIDERS: Emergency Provider Internal Medicine Critical Care Medicine
DX: L02.511 Cutaneous abscess of right hand (principal); F17.290 Nicotine dependence, other tobacco product, uncomplicated
CPT/HCPCS: 36415; 80053; 83605; 85025; 87040; 87070; 87075; 87147; 87186; 87205; 99283

== ENCOUNTER 2023-09-26 01:32 | Emergency (ER) | payer OTHER, SELFPAY ==
[2023-09-26 01:38] VITALS: BP 145/94; PULSE 102; RESP 18; TEMP 36.7; O2SAT 100
--- NOTE | 2023-09-26 01:47 | ED.WOUNDLAC ---
HPI - Wound/Laceration General Chief Complaint: Wound/Laceration Stated Complaint: abscess on wrist Time Seen by Provider: 09/26/23 01:42 Source: patient Mode of arrival: ambulatory Limitations: no limitations History of Present Illness HPI narrative: is a 28-year-old male that has lesion an area of warmth tenderness nonfluctuant area with central punctate lesion on left anterior wrist that is warm and tender to touch. No fever chills no chest pain no shortness of breath. Onset (ago): day(s) Extremity Location: Left: wrist ( Nonfluctuant warmer raised area anterior left wrist) Patient tetanus UTD: Yes Related Data Allergies Allergy/AdvReac Type Severity Reaction Status Date / Time clavulanic acid Allergy Mild Anaphylaxis Verified 09/26/23 01:36 Penicillins Allergy Mild Anaphylaxis Verified 09/26/23 01:36 amoxicillin Allergy Unknown Hives / Verified 09/26/23 01:36 Red Face BETA-LACTAMASE Allergy Unknown Hives Uncoded 09/26/23 01:36 Review of Systems Review of Systems: All systems reviewed & are unremarkable except as noted in HPI and below PMFSH Past Medical History Medical History Anxiety Atypical chest pain Bronchitis Paranoid schizophrenia Surgical History Surgical History History of ankle surgery Social History Social History Tobacco type: e-cigarettes/vaping Substance use: current Substance use type: marijuana and methamphetamine Gender identity (if verbalized by the patient): Male Exam Const: General: healthy appearing and no acute distress Nutritional Appearance: well nourished Resp: Effort & Inspection: normal respiratory effort Auscultation: clear to auscultation bilaterally Cardio: Rate: regular rate Rhythm: regular rhythm GI: GI Palp: Yes Soft to palpation Skin: Wounds: wounds noted Other: Area of warmth and tenderness and dtraining proximally 3cm in diameter left anterior wrist Neuro: General: patient oriented x3 and moves all extremities Course Course Emergency Course: patient has this is an allergy is, will start dose of p.o. clindamycin. Vital Signs Vital signs: Vital Signs Temperature 36.7 C 09/26/23 01:38 Pulse Rate 102 H 09/26/23 01:38 Respiratory Rate 18 09/26/23 01:38 Blood Pressure 145/94 H 09/26/23 01:38 Pulse Oximetry 100 09/26/23 01:38 Oxygen Delivery Room Air 09/26/23 01:38 Temperature 36.7 C 09/26/23 01:38 Pulse Rate 102 H 09/26/23 01:38 Respiratory Rate 18 09/26/23 01:38 Blood Pressure 145/94 H 09/26/23 01:38 Pulse Oximetry 100 09/26/23 01:38 Oxygen Delivery Room Air 09/26/23 01:38 Critical Care Time Critical Care Time Critical Care Time: No Discharge Plan Discharge Clinical Impression: Abscess, Cellulitis Patient Disposition: Home, Self-Care Condition: Stable Instructions: Antibiotic Form, Cellulitis (ED), Abscess (ED) Additional Instructions: can continue ibuprofen as needed, warm compress to affected area take antibiotics as prescribed and follow up with primary if symptoms persist or worsen. Prescriptions: New clindamycin HCl 300 mg capsule 300 mg PO Q8H 10 Days Qty: 30 0RF Follow-up/Referrals: UNKNOWN,DOCTOR [Primary Care Provider] - Time of Disposition: 01:53
[2023-09-26] MEDS: CLINDAMYCIN HCL 150 MG CAP 600 MG PO (01:51)
== END 2023-09-26 02:00 | disposition home or self-care (01) ==
PROVIDERS: Emergency Provider Emergency Medicine
DX: L02.414 Cutaneous abscess of left upper limb (principal); F17.290 Nicotine dependence, other tobacco product, uncomplicated
CPT/HCPCS: 99283; A9270

== ENCOUNTER 2023-12-03 21:39 | Emergency (ER) | payer OTHER, SELFPAY ==
--- NOTE | 2023-12-03 22:20 | PC.NURSE ---
Went to ER waiting room and pt wasn't in waiting room, LWBS.
== END 2023-12-03 22:20 | disposition left against medical advice (07) ==
PROVIDERS: Emergency Provider Family Medicine
DX: Z53.21 Procedure and treatment not carried out due to patient leaving prior to being seen by health care provider (principal)
CPT/HCPCS: 99199

== ENCOUNTER 2024-10-03 19:26 | Emergency (ER) | payer OTHER, SELFPAY ==
[2024-10-03 19:26] VITALS: BP 132/92; PULSE 117; RESP 18; TEMP 36.8; O2SAT 98
--- NOTE | 2024-10-03 19:45 | PC.NURSE ---
COVID SWAB AND THROAT SWAB TAKEN TO LAB
--- NOTE | 2024-10-03 19:54 | ED_ITS ---
HPI - General Adult General Chief complaint: Neck Pain/Injury Stated complaint: R side swelling/throat issues Time Seen by Provider: 10/03/24 19:49 Source: patient Mode of arrival: ambulatory Limitations: no limitations History of Present Illness HPI narrative: 29 year old male presents to the Emergency Department complaining of right sided throat pain with difficulty swallowing. Onset yesterday. No known fever. No nausea, vomiting, diarrhea. No known exposure. Onset (ago): day(s) (yesterday) Location: mouth (throat) Severity: moderate Relieving factors: none Exacerbating factors: other (swallowing) Treatments prior to arrival: none Related Data Allergies Allergy/AdvReac Type Severity Reaction Status Date / Time clavulanic acid Allergy Mild Anaphylaxis Verified 10/03/24 19:41 Penicillins Allergy Mild Anaphylaxis Verified 10/03/24 19:41 amoxicillin Allergy Unknown Hives / Verified 10/03/24 19:41 Red Face BETA-LACTAMASE Allergy Unknown Hives Uncoded 09/26/23 01:36 Review of Systems Review of Systems: All systems reviewed & are unremarkable except as noted in HPI and below Constitutional: Constitutional: Reports as per HPI, Denies chills and Denies fever(s) Eyes: Eyes: Reports as per HPI ENT: Reports system reviewed and no additional complaints, except as documented and Reports sore throat Cardiovascular: Cardiovascular: Reports as per HPI Respiratory: Respiratory: Reports as per HPI, Denies chest congestion, Denies cough and Denies dyspnea Gastrointestinal: Gastrointestinal: Reports as per HPI, Denies abdominal pain, Denies diarrhea, Denies nausea and Denies vomiting Genitourinary: Genitourinary: Reports no additional male genitourinary complaints Musculoskeletal: Musculoskeletal: Reports no additional musculoskeletal complaints Integumentary/Breasts: Skin/Breast: Reports system reviewed and no additional complaints, except as docu Neurologic: Reports system reviewed and no additional complaints, except as documented PMFSH Past Medical History Medical History Bronchitis Atypical chest pain Anxiety Paranoid schizophrenia Surgical History Surgical History History of ankle surgery Social History Social History Tobacco type: e-cigarettes/vaping Substance use: current Substance use type: marijuana and methamphetamine Gender identity (if verbalized by the patient): Male Exam Const: General: alert Nutritional Appearance: well nourished Orientation/consciousness: patient oriented x3 Limitations: no limitations HENMT: Head: normal to inspection Ears: external ears normal Face/Nose/Sinus: Normal external nose present Face and sinus: normal facial exam Mouth: Yes Normal oral and palatal mucosa present Other: erythema to pharynx with small amount exudate right side, no asymmetry /uvula m idline Eyes: Conjunctivae: conjunctivae normal Pupils: Equal, round and reactive pupils present EOM: EOMs intact bilaterally Direct Ophthalmoscopy: no photophobia Neck: Neck: normal visual inspection and meningismus present Chest: Chest palpation & inspection: normal inspection of the chest Resp: Effort & Inspection: normal respiratory effort Auscultation: clear to auscultation bilaterally Cardio: Rate: regular rate Rhythm: regular rhythm GI: Inspection: non-distended GI Palp: Yes Soft to palpation and No Tenderness to palpation present (GI) Back/Spine/Pelvis: Back: no CVA tenderness Skin: General skin exam: normal color Rashes: no rashes Neuro: General: patient oriented x3 Cranial nerves: Yes Nystagmus not present Speech: normal speech Gait exam (Neuro): Normal gait present Other: grossly normal Extrem: General: normal to inspection and no clubbing, cyanosis or edema Psych: Mental Status: mental status grossly normal Course Course Emergency Course: 29 y/o male presents to the ED c/o right sided throat pain, difficulty swallowing. Onset yesterday. PE: throat erythematous with small exudate right pharynx. No asymmetry, uvula midline Strep: positive Covid: negative Influenza: negative RSV: negative Tx: Zithromax 500 mg po Rx and Instructions Vital Signs Vital signs: Vital Signs Temperature 36.8 C 10/03/24 19:26 Pulse Rate 117 H 10/03/24 19:26 Respiratory Rate 18 10/03/24 19:26 Blood Pressure 132/92 H 10/03/24 19:26 Pulse Oximetry 98 10/03/24 19:26 Oxygen Delivery Room Air 10/03/24 19:26 Temperature 36.8 C 10/03/24 19:26 Pulse Rate 117 H 10/03/24 19:26 Respiratory Rate 18 10/03/24 19:26 Blood Pressure 132/92 H 10/03/24 19:26 Pulse Oximetry 98 10/03/24 19:26 Oxygen Delivery Room Air 10/03/24 19:26 Medical Decision Making Vital Signs Vital Signs: Vital Signs Temperature 36.8 C 10/03/24 19:26 Pulse Rate 117 H 10/03/24 19:26 Respiratory Rate 18 10/03/24 19:26 Blood Pressure 132/92 H 10/03/24 19:26 Pulse Oximetry 98 10/03/24 19:26 Oxygen Delivery Room Air 10/03/24 19:26 Temperature 36.8 C 10/03/24 19:26 Pulse Rate 117 H 10/03/24 19:26 Respiratory Rate 18 10/03/24 19:26 Blood Pressure 132/92 H 10/03/24 19:26 Pulse Oximetry 98 10/03/24 19:26 Oxygen Delivery Room Air 10/03/24 19:26 Discharge Plan Discharge Clinical Impression: Strep sore throat Patient Disposition: Home, Self-Care Condition: Stable Instructions: Antibiotic Form, Strep Throat (ED) Additional Instructions: Rest Push fluids Tylenol 650 mg every 4 hours and Ibuprofen 600 mg every 6 hours for fever and body aches Throat lozenges /sprays (benzocaine) as needed for sore throat Take medication as prescribed Follow up Primary Care Physician Patient Language: Marshallese Prescriptions: New azithromycin [Zithromax Z-Eric] 250 mg tablet See Rx Instructions .ROUTE .COMPLEX Qty: 6 0RF Rx Instructions: For 250 mg dose pack: take 500 mg today (day 1), then 250 mg for 4 days (days 2-5) No Action clindamycin HCl 300 mg capsule 300 mg PO Q8H 10 Days Qty: 30 0RF Follow-up/Referrals: UNKNOWN,DOCTOR [Primary Care Provider] - Time of Disposition: 20:51
[2024-10-03 20:18] LABS: Strep Group A RT-PCR DETECTED (Negative)
[2024-10-03 20:31] LABS: Influenza A QL RT-PCR Negative (Negative); Influenza B QL RT-PCR Negative (Negative); RSV RNA, RT-PCR Negative (Negative); SARS-CoV-2 RNA PCR Negative (Negative)
--- NOTE | 2024-10-03 20:45 | PC.NURSE ---
DR GUERRERO AT THE BEDSIDE
[2024-10-03] MEDS: AZITHROMYCIN 250 MG TABLET 500 MG PO (20:59)
[2024-10-03 21:24] VITALS: BP 118/87; PULSE 98; RESP 18; O2SAT 100
== END 2024-10-03 21:24 | disposition home or self-care (01) ==
PROVIDERS: Emergency Provider Emergency Medicine
DX: J02.0 Streptococcal pharyngitis (principal); F17.290 Nicotine dependence, other tobacco product, uncomplicated; Z20.822 Contact with and (suspected) exposure to COVID-19
CPT/HCPCS: 87637; 87651; 99283; A9270